=== PATIENT | male | born 1950 | race Caucasian/White ===

== ENCOUNTER 2019-01-28 08:19 | Emergency (ER) | payer OTHER ==
--- OUTSIDE RECORDS SUMMARY | 2019-01-28 08:21 | XMS REPORT | Clinical Summary ---
:1950 Author Organization [facility] Address [address] [place] [address] Care Team Providers Name Role Phone Dale Pulliam MD Primary Care Provider Allergies Active Allergy Reactions Severity Noted Date Comments Meperidine Nausea And Vomiting 08/30/2009 Medications Medication Sig Dispensed Refills Start Date End Date Status allopurinol (ZYLOPRIM) Take 300 mg by 0 02/17/2017 Active 300 MG tablet mouth daily. amLODIPine (NORVASC) Take 10 mg by 0 01/27/2017 Active 10 mg tablet mouth daily. diclofenac (VOLTAREN) Take 75 mg by 0 01/19/2017 Active 75 MG EC tablet mouth as needed. levothyroxine Take 100 mcg by 0 02/17/2017 Active (SYNTHROID, LEVOXYL) mouth daily. 100 mcg tablet lisinopril Take 20 mg by 0 02/03/2017 Active (PRINIVIL,ZESTRIL) 20 mouth daily. mg tablet omeprazole (PriLOSEC) Take 40 mg by 0 02/17/2017 Active 40 MG capsule mouth daily. MULTIVITAMIN ORAL Take 1 tablet by 0 Active mouth daily. diclofenac (VOLTAREN) Apply topically 4 1 Tube 2 06/24/2018 Active 1 % gel (four) times a day. Apply 2 gms to affected area 4 times a day DULoxetine (CYMBALTA) 0 09/30/2018 Active 30 MG capsule ALPRAZolam (XANAX) 0.5 Take 0.5 mg by 0 Active MG tablet mouth nightly as needed for anxiety. Active Problems Problem Noted Date Hypertension Hypothyroidism Encounters Date Type Specialty Care Team Description 01/06/2019 Office Visit Orthopedic Surgery Shmuel Langford Primary osteoarthritis of left hand (Primary Dx); MD Slim Primary osteoarthritis of right hand 06/24/2018 Office Visit Orthopedic Surgery Shmuel Langford Primary osteoarthritis MD Slim of left hand (Primary Dx) after 01/27/2018 Immunizations Name Dates Previously Given Next Due Influenza, Unspecified 05/11/2016 Family History Medical History Relation Name Comments Cancer Father Hypertension Mother Relation Name Status Comments Father Mother Social History Tobacco Use Types Packs/Day Years Used Date Never Smoker Smokeless Tobacco: Former User Quit: 1989 Alcohol Use Drinks/Week oz/Week Comments No Sex Assigned at Date Recorded Not on file Job Start Date Occupation Industry Not on file Not on file Not on file Travel History Travel Start Travel End No recent travel history available. Last Filed Vital Signs Vital Sign Reading Time Taken Blood Pressure - - Pulse - - Temperature - - Respiratory Rate - - Oxygen Saturation - - Inhaled Oxygen Concentration - - Weight 65.8 kg (145 lb) 01/06/2019 8:44 AM CDT Height 167.6 cm (5' 6") 01/06/2019 8:44 AM CDT Body Mass Index 23.4 01/06/2019 8:44 AM CDT Plan of Treatment Health Maintenance Due Date Last Done Comments COLONOSCOPY SCREENING 2000 SHINGLES VACCINES (#1) 2000 65+ PNEUMOCOCCAL VACCINE (1 of 2 - PCV13) 2015 INFLUENZA VACCINE 03/11/2019 05/11/2016 Implants Implanted Type Area Die Repair Machinist Device Shelf Model / Identifier Expiration Serial / Date Lot Screw Bone Comp Headls Mini Ti 26mm Acutrak - [id number] Orthopedic [facility]ED [facility] 02/15/2023 LLOYD 260 S / Implanted: 07/17/2017 (Quantity not on file) Trauma Implants / [id number] Procedures Procedure Name Priority Date/Time Associated Diagnosis Comments LA ARTHROCENTESIS Routine 01/06/2019 8:30 Primary Results for this ASPIR&/INJ SMALL AM CDT osteoarthritis of procedure are in JT/BURSA W/O US left hand the results section. LA ARTHROCENTESIS Routine 01/06/2019 8:30 Primary Results for this ASPIR&/INJ SMALL AM CDT osteoarthritis of procedure are in JT/BURSA W/O US left hand the results Primary section. osteoarthritis of right hand LA ARTHROCENTESIS Routine 06/24/2018 8:30 Primary Results for this ASPIR&/INJ SMALL AM FIELD SERVICE CONSULTANT osteoarthritis of procedure are in JT/BURSA W/O US left hand the results section. LA ARTHROCENTESIS Routine 06/24/2018 8:30 Primary Results for this ASPIR&/INJ SMALL AM FIELD SERVICE CONSULTANT osteoarthritis of procedure are in JT/BURSA W/O US left hand the results section. XR HAND 3+ VW LEFT Routine 06/24/2018 8:27 Left hand pain Results for this AM FIELD SERVICE CONSULTANT procedure are in the results section. after 01/27/2018 Results Small Joint Arthrocentesis: long finger, L long PIP (01/06/2019 8:30 AM CDT) Narrative Performed At Shmuel Langford MD 01/06/2019 11:57 AM Small Joint Arthrocentesis: long finger, L long PIP Consent given by: patient Site marked: site marked Timeout: Immediately prior to procedure a time out was called to verify the correct patient, procedure, equipment, field support representative and site/side marked as required Supporting Documentation Indications: pain Procedure Details Preparation: Patient was prepped and draped in the usual sterile fashion Location: long finger - L long PIP Left side: Needle size: 25 G Left long finger medications administered: 20 mg methylPREDNISolone acetate 40 mg/mL; 0.5 mL lidocaine 10 mg/mL (1 %) Patient tolerance: patient tolerated the procedure well with no immediate complications Small Joint Arthrocentesis: index finger, Bilateral index PIP (01/06/2019 8:30 AM CDT) Narrative Performed At Shmuel Langford MD 01/08/20197:13 AM Small Joint Arthrocentesis: index finger, Bilateral index PIP Consent given by: patient Site marked: site marked Timeout: Immediately prior to procedure a time out was called to verify the correct patient, procedure, equipment, field support representative and site/side marked as required Supporting Documentation Indications: pain Procedure Details Preparation: Patient was prepped and draped in the usual sterile fashion Location: index finger - Bilateral index PIP Right side: Needle size: 25 G Right index finger medications administered: 20 mg methylPREDNISolone acetate 40 mg/mL; 0.5 mL lidocaine 10 mg/mL (1 %) Patient tolerance: patient tolerated the procedure well with no immediate complications Left side: Needle size: 25 G Left index finger medications administered: 0.5 mL lidocaine 10 mg/mL (1 %); 20 mg methylPREDNISolone acetate 40 mg/mL Patient tolerance: patient tolerated the procedure well with no immediate complications Small Joint Arthrocentesis: long finger, L long PIP (06/24/2018 8:30 AM FIELD SERVICE CONSULTANT) Narrative Performed At Shmuel Langford MD 06/24/2018 12:13 PM Small Joint Arthrocentesis: long finger, L long PIP Consent given by: patient Site marked: site marked Timeout: Immediately prior to procedure a time out was called to verify the correct patient, procedure, equipment, field support representative and site/side marked as required Supporting Documentation Indications: pain Procedure Details Preparation: Patient was prepped and draped in the usual sterile fashion Location: long finger - L long PIP Left side: Needle size: 25 G Left long finger medications administered: 20 mg methylPREDNISolone acetate 40 mg/mL; 0.5 mL lidocaine 10 mg/mL (1 %) Patient tolerance: patient tolerated the procedure well with no immediate complications Small Joint Arthrocentesis: index finger, L index PIP (06/24/2018 8:30 AM FIELD SERVICE CONSULTANT) Narrative Performed At Shmuel Langford MD 06/24/2018 12:13 PM Small Joint Arthrocentesis: index finger, L index PIP Consent given by: patient Site marked: site marked Timeout: Immediately prior to procedure a time out was called to verify the correct patient, procedure, equipment, field support representative and site/side marked as required Supporting Documentation Indications: pain Procedure Details Preparation: Patient was prepped and draped in the usual sterile fashion Location: index finger - L index PIP Left side: Needle size: 25 G Left index finger medications administered: 20 mg methylPREDNISolone acetate 40 mg/mL; 0.5 mL lidocaine 10 mg/mL (1 %) Patient tolerance: patient tolerated the procedure well with no immediate complications XR Hand 3+ Vw Left (06/24/2018 8:27 AM FIELD SERVICE CONSULTANT) Specimen Narrative Performed At X-rays 3 views of the left hand showed a healing wrist fusion.The dorsal HM RADIANT plate is intact.Arthritis is noted at the finger interphalangeal joints. Performing Organization Address City/State/Zipcode Phone Number [facility] [address] [place] [address] after 01/27/2018 Insurance Payer Benefit Plan / Subscriber ID Effective Dates Phone Address Type Group MEDICARE MEDICARE PART A xxxxxxxxxxx 2013-[place]anna [place], [place] Medicare AND B t [employer] xxxxxxxxxx 2018-[place] [employer] [place] Advance Directives Patient has advance care planning documents on file. For more information, please contact:Anand Kohury[address] [place] [address]
--- NOTE | 2019-01-28 09:06 | ER ---
Nurse's Notes [facility] Name: Nathan Hurley Age: 68 yrs Sex: Male : 1950 Arrival Date: 01/28/2019 Time: 08:20 Bed 6 Private MD: Derian Pulliam C Diagnosis: Hematoma of distal left anterior tibia Presentation: 01/28 08:34 Presenting complaint: Left lower leg swelling after dropping wooden beam on leg 1 week hb ago. Transition of care: patient was not received from another setting of care. Onset of symptoms was January 28, 2019. Risk Assessment: Do you want to hurt yourself or someone else? Patient reports no desire to harm self or others. Initial Sepsis Screen: Does the patient meet any 2 criteria? No. Patient's initial sepsis screen is negative. Does the patient have a suspected source of infection? No. Patient's initial sepsis screen is negative. Care prior to arrival: None. 08:34 Method Of Arrival: Ambulatory hb 08:34 Acuity: ANTONIO 4 hb Triage Assessment: 08:35 General: Appears in no apparent distress. comfortable, Behavior is calm, cooperative, bp appropriate for age. Pain: Complains of pain in left calf. EENT: No deficits noted. Neuro: Level of Consciousness is awake, alert, obeys commands, Oriented to person, place, time, situation, Appropriate for age. Cardiovascular: No deficits noted. Respiratory: Airway is patent Respiratory effort is even, unlabored. GI: No signs and/or symptoms were reported involving the gastrointestinal system. : No signs and/or symptoms were reported regarding the genitourinary system. Derm: No deficits noted. Musculoskeletal: Circulation, motion, and sensation intact. Range of motion: intact in all extremities. Injury Description: Bruise sustained to left barroso. Historical: - Allergies: 08:36 No Known Allergies; hb - Home Meds: 08:36 diclofenac oral oral [Active]; hb - PMHx: 08:36 Arthritis; hb - PSHx: 08:36 Servadno Hip Replacement; Servando Knee Replacement; Servando Wrist; Hand - Right; hb - Immunization history:: Adult Immunizations up to date. - Social history:: Smoking status: Patient/guardian denies using tobacco. - Ebola Screening: : No symptoms or risks identified at this time. Screenin:36 Abuse screen: Denies threats or abuse. Denies injuries from another. Nutritional hb screening: No deficits noted. Tuberculosis screening: No symptoms or risk factors identified. Fall Risk None identified. Assessment: 08:35 General: SEE TRIAGE NOTE. bp 09:25 Reassessment: PT D/C HOME AMBULATORY, DX WITH LEFT DISTAL TIBIA HEMATOMA. bp Vital Signs: 08:36 BP 139 / 78; Pulse 64; Resp 16; Temp 97.8; Pulse Ox 100% ; Weight 74.84 kg; Height 5 hb ft. 9 in. (175.26 cm); Pain 0/10; 09:25 BP 141 / 75; Pulse 67; Resp 16; Temp 98; Pulse Ox 100% ; bp 08:36 Body Mass Index 24.37 (74.84 kg, 175.26 cm) hb ED Course: 08:20 Patient arrived in ED. as 08:20 Derian Pulliam MD is Private Physician. as 08:21 Arturo Waddell MD is Attending Physician. kdr 08:34 Triage completed. hb 08:35 Patient has correct armband on for positive identification. Bed in low position. Call bp light in reach. Side rails up X2. 08:36 Arm band placed on. hb 08:48 Faisal Teixeira, RN is Primary Nurse. bp 09:00 Derian Pulliam MD is Referral Physician. kdr 09:12 Vinicio wrap to left lower extremity. em1 09:30 No provider procedures requiring assistance completed. Patient did not have IV access bp during this emergency room visit. Administered Medications: 09:10 Drug: KeFLEX 500 mg Route: PO; bp 09:23 Follow up: Response: No adverse reaction bp Outcome: 09:05 Discharge ordered by . kdr 09:31 Discharged to home ambulatory. bp 09:31 Condition: stable 09:31 Discharge instructions given to patient, Instructed on discharge instructions, follow up and referral plans. medication usage, Demonstrated understanding of instructions, follow-up care, medications, wound care. 09:32 Patient left the ED. bp Signatures: Arturo Waddell MD MD kdr Susan Clemente Eric em1 Rosana Adkins, RN RN hb Faisal Teixeira, RN RN bp
--- NOTE | 2019-01-28 09:06 | EDPHYS ---
Physician Documentation [facility] Name: Nathan Hurley Age: 68 yrs Sex: Male : 1950 Arrival Date: 01/28/2019 Time: 08:20 Bed 6 Private MD: Derian Pulliam C ED Physician Arturo Waddell HPI: 01/28 08:53 This 68 yrs old Male presents to ER via Ambulatory with complaints of Leg kdr Swelling, Leg Pain. 08:53 The patient presents with an abrasion, pain, that is acute, swelling. The complaints kdr affect the anterior aspect of left ankle. Context: The problem was sustained at home, resulted from a crush injury, from a heavy object, the patient can fully bear weight, the patient is able to ambulate, Problem is a result from a previous injury: No. Onset: The symptoms/episode began/occurred gradually, 1 week(s) ago. Modifying factors: The symptoms are alleviated by nothing. the symptoms are aggravated by movement. Associated signs and symptoms: The patient has no apparent associated signs or symptoms. Treatment prior to arrival includes: no previous treatment. Severity of symptoms: At their worst the symptoms were very mild, in the emergency department the symptoms are unchanged. The patient has not experienced similar symptoms in the past. The patient has not recently seen a physician. Historical: - Allergies: 08:36 No Known Allergies; hb - Home Meds: 08:36 diclofenac oral oral [Active]; hb - PMHx: 08:36 Arthritis; hb - PSHx: 08:36 Servando Hip Replacement; Servando Knee Replacement; Servando Wrist; Hand - Right; hb - Immunization history:: Adult Immunizations up to date. - Social history:: Smoking status: Patient/guardian denies using tobacco. - Ebola Screening: : No symptoms or risks identified at this time. ROS: 08:53 Constitutional: Negative for fever, chills, and weight loss, Eyes: Negative for injury, kdr pain, redness, and discharge, ENT: Negative for injury, pain, and discharge, Neck: Negative for injury, pain, and swelling, Cardiovascular: Negative for chest pain, palpitations, and edema, Respiratory: Negative for shortness of breath, cough, wheezing, and pleuritic chest pain, Abdomen/GI: Negative for abdominal pain, nausea, vomiting, diarrhea, and constipation, Back: Negative for injury and pain, : Negative for injury, bleeding, discharge, and swelling, Skin: Negative for injury, rash, and discoloration, Neuro: Negative for headache, weakness, numbness, tingling, and seizure activity. Psych: Negative for depression, anxiety, suicide ideation, homicidal ideation, and hallucinations, Allergy/Immunology: Negative for hives, rash, and allergies, Endocrine: Negative for neck swelling, polydipsia, polyuria, polyphagia, and marked weight changes, Hematologic/Lymphatic: Negative for swollen nodes, abnormal bleeding, and unusual bruising. 08:53 MS/extremity: Positive for injury or acute deformity, ecchymosis, erythema, swelling, of the left barroso and anterior aspect of left ankle, Negative for decreased range of motion, tenderness, warmth. Exam: 08:53 Constitutional: This is a well developed, well nourished patient who is awake, alert, kdr and in no acute distress. 08:53 Musculoskeletal/extremity: Extremities: grossly normal except: abrasion, pain, abrasion, ROM: no acute changes, intact in all extremities, Circulation is intact in all extremities. Sensation intact. Compartment Syndrome exam of affected extremity: is normal. no tingling, no sensation deficit, no palor, no weak pulses, the left foot Vital Signs: 08:36 BP 139 / 78; Pulse 64; Resp 16; Temp 97.8; Pulse Ox 100% ; Weight 74.84 kg; Height 5 hb ft. 9 in. (175.26 cm); Pain 0/10; 09:25 BP 141 / 75; Pulse 67; Resp 16; Temp 98; Pulse Ox 100% ; bp 08:36 Body Mass Index 24.37 (74.84 kg, 175.26 cm) hb MDM: 08:53 Data reviewed: vital signs, nurses notes. Counseling: I had a detailed discussion with kdr the patient and/or guardian regarding: the historical points, exam findings, and any diagnostic results supporting the discharge/admit diagnosis, the need for outpatient follow up. ED course: The patient was stable and non-toxic in the ED. He was happy with the care provided and the plan for discharge and follow-up. 09:05 Patient medically screened. kdr 01/28 08:52 Order name: Vinicio Wrap: Left lower extremity; Complete Time: 09:12 kdr Administered Medications: 09:10 Drug: KeFLEX 500 mg Route: PO; bp 09:23 Follow up: Response: No adverse reaction bp Disposition: 01/28/19 09:05 Discharged to Home. Impression: Hematoma of distal left anterior tibia. - Condition is Stable. - Discharge Instructions: Hematoma, [id number]. - Prescriptions for Cephalexin 500 mg Oral Capsule - take 1 capsule by ORAL route every 6 hours for 7 days; 28 capsule. - Medication Reconciliation Form, Thank You Letter, Antibiotic Education form. - Follow up: Derian Pulliam MD; When: 2 - 3 days; Reason: If symptoms return, Further diagnostic work-up, Recheck today's complaints, Continuance of care, Re-evaluation by your physician. - Problem is an ongoing problem. - Symptoms are unchanged. Signatures: Arturo Waddell MD MD kdr Rosana Adkins, RITESH RN Faisal Teixeira, RN RN bp Corrections: (The following items were deleted from the chart) 09:32 09:05 01/28/2019 09:05 Discharged to Home. Impression: Hematoma of distal left anterior bp tibia. Condition is Stable. Forms are Medication Reconciliation Form, Thank You Letter, Antibiotic Education, Prescription Opioid Use. Follow up: Derian Pulliam; When: 2 - 3 days; Reason: If symptoms return, Further diagnostic work-up, Recheck today's complaints, Continuance of care, Re-evaluation by your physician. Problem is an ongoing problem. Symptoms are unchanged. kdr
[2019-01-28] MEDS ORDERED: CEPHALEXIN 250 MG CAP ONE (09:26)
[2019-01-28 09:54] VITALS: O2SAT 100
[2019-01-28 09:55] VITALS: BP 141/75; TEMP 98
== END 2019-01-28 09:32 | disposition home or self-care (01) ==
LOC: ER 08:19
DX: S80.12XA Contusion of left lower leg, initial encounter (principal); X58.XXXA Exposure to other specified factors, initial encounter; Y93.9 Activity, unspecified; Y92.009 Unspecified place in unspecified non-institutional (private) residence as the place of occurrence of the external cause; Z96.643 Presence of artificial hip joint, bilateral; Z96.653 Presence of artificial knee joint, bilateral
CPT/HCPCS: 99283

== ENCOUNTER 2019-05-01 11:17 | Emergency (ER) | payer OTHER ==
--- OUTSIDE RECORDS SUMMARY | 2019-05-01 11:19 | XMS REPORT | Clinical Summary ---
:1950 Author Organization [facility] Address [address] [place] [address] Care Team Providers Name Role Phone Dale [...] Team Description 01/06/2019 Office Visit Orthopedic Surgery Shumel Langford Primary osteoarthritis of left hand (Primary Dx); MD Slim Primary osteoarthritis of right hand 06/24/2018 Office Visit Orthopedic Surgery Shmuel Langford Primary osteoarthritis MD Slim of left hand (Primary Dx) after 04/30/2018 Immunizations Name Administration Dates Next Due Influenza, Unspecified 05/11/2016 Family History [...] Vital Signs Vital Sign Reading Time Taken Comments Blood Pressure - - Pulse - - [...] VACCINE 03/11/2019 05/11/2016 Implants Implanted Type Area Molder Bench Device Shelf Model / Identifier Expiration Serial / Date Lot Screw Bone Comp Headls Mini Ti 26mm Acutrak - [id number] Orthopedic [facility]UMED [facility] 02/15/2023 LLOYD 260 S / Implanted: 07/17/2017 at [facility] (Quantity not on file) Trauma Implants / [id number] Procedures Procedure Name Priority Date/Time Associated Diagnosis Comments DE ARTHROCENTESIS Routine 01/06/2019 8:30 Primary Results for this ASPIR&/INJ SMALL AM CDT osteoarthritis of procedure are in JT/BURSA W/O US left hand the results section. DE ARTHROCENTESIS Routine 01/06/2019 8:30 Primary Results for this ASPIR&/INJ SMALL AM CDT osteoarthritis of procedure are in JT/BURSA W/O US left hand the results Primary section. osteoarthritis of right hand DE ARTHROCENTESIS Routine 06/24/2018 8:30 Primary Results for this ASPIR&/INJ SMALL AM CAR DRYER osteoarthritis of procedure are in JT/BURSA W/O US left hand the results section. DE ARTHROCENTESIS Routine 06/24/2018 8:30 Primary Results for this ASPIR&/INJ SMALL AM CAR DRYER osteoarthritis of procedure are in JT/BURSA W/O US left hand the results section. XR HAND 3+ VW LEFT Routine 06/24/2018 8:27 Left hand pain Results for this AM CAR DRYER procedure are in the results section. after 04/30/2018 Results Small Joint Arthrocentesis: long finger, L long PIP (01/06/2019 8:30 AM CDT) Narrative Performed At Shmuel Langford MD 01/06/2019 11:57 AM Small Joint Arthrocentesis: long finger, L long PIP Consent given by: patient Site marked: site marked Timeout: Immediately prior to procedure a time out was called to verify the correct patient, procedure, equipment, residential support specialist and site/side marked as required Supporting Documentation [...] to verify the correct patient, procedure, equipment, residential support specialist and site/side marked as required Supporting Documentation [...] finger, L long PIP (06/24/2018 8:30 AM CAR DRYER) Narrative Performed At Shmuel Langford MD 06/24/2018 12:13 PM Small Joint Arthrocentesis: long finger, L long PIP Consent given by: patient Site marked: site marked Timeout: Immediately prior to procedure a time out was called to verify the correct patient, procedure, equipment, residential support specialist and site/side marked as required Supporting Documentation [...] finger, L index PIP (06/24/2018 8:30 AM CAR DRYER) Narrative Performed At Shmuel Langford MD 06/24/2018 12:13 PM Small Joint Arthrocentesis: index finger, L index PIP Consent given by: patient Site marked: site marked Timeout: Immediately prior to procedure a time out was called to verify the correct patient, procedure, equipment, residential support specialist and site/side marked as required Supporting Documentation [...] Hand 3+ Vw Left (06/24/2018 8:27 AM CAR DRYER) Specimen Narrative Performed At X-rays 3 views of the left hand showed a healing wrist fusion.The dorsal HM [facility]IANT plate is intact.Arthritis is noted at the finger interphalangeal joints. Performing Organization Address City/State/Zipcode Phone Number [facility] [address] [place] [address] after 04/30/2018 Insurance Payer Benefit Plan / Subscriber ID Effective Dates Phone Address Type Group MEDICARE MEDICARE PART A xxxxxxxxxxx 2013-[place], [place] Medicare AND B t [employer] xxxxxxxxxx 2018-[place] [employer] [place] Advance Directives For more information, please contact: [phone] Type Date Recorded Patient Intensive Care Nurse Explanation Advance Directives, Living Will 02/27/2017 8:50 AM and Medical Power of Calf Skinner
--- NOTE | 2019-05-01 12:22 | RAD REPORT ---
EXAM DESCRIPTION: RAD - Chest Pa And Lat (2 Views) - 05/01/2019 11:55 am CLINICAL HISTORY: PAIN Chest pain. COMPARISON: Chest Pa And Lat (2 Views) dated 09/24/2018; CHEST PA AND LAT 2 VIEW dated 04/11/2015; CHES T SINGLE VIEW dated 09/24/2014; CHEST SINGLE VIEW dated 09/07/2014 FINDINGS: The lungs are clear. The heart is normal in size. No displaced fractures. IMPRESSION: No acute or concerning finding suspected.
--- NOTE | 2019-05-01 12:30 | EDPHYS ---
Physician Documentation [facility] Name: Nathan Hurley Age: 68 yrs Sex: Male : 1950 Arrival Date: 05/01/2019 Time: 11:19 Bed 11 Private MD: ED Physician Maira Escalona HPI: 05/01 12:01 This 68 yrs old Male presents to ER via Ambulatory with complaints of Rib kb Pain. 12:01 The patient or guardian reports chest pain that is located primarily in the anterior kb chest wall. Onset: The symptoms/episode began/occurred 2 week(s) ago. The pain does not radiate. Associated signs and symptoms: The patient has no apparent associated signs or symptoms. The chest pain is described as aching. Duration: The patient or guardian reports a single episode. Modifying factors: the symptoms are aggravated by movement, palpation of area. Severity of pain: At its worst the pain was mild moderate in the emergency department the pain is unchanged. The patient has not experienced similar symptoms in the past. The patient has not recently seen a physician. Pt reports he fell off of a ladder a couple of weeks ago and hurt his right lower ribs. States he was framing a house yesterday, doing a lot of bending, and woke up with increased pain to area this morning. "Wanted to see if my ribs were cracked or not". Historical: - Allergies: 11:24 Demerol; la1 - PMHx: 11:24 Arthritis; Hypertension; la1 - Immunization history:: Adult Immunizations up to date. - Social history:: Smoking status: Patient/guardian denies using tobacco. - Ebola Screening: : No symptoms or risks identified at this time. ROS: 12:00 Constitutional: Negative for fever, chills, and weight loss, Respiratory: Negative for kb shortness of breath, cough, wheezing, and pleuritic chest pain, Abdomen/GI: Negative for abdominal pain, nausea, vomiting, diarrhea, and constipation, Back: Negative for injury and pain, MS/Extremity: Negative for injury and deformity, Skin: Negative for injury, rash, and discoloration, Neuro: Negative for headache, weakness, numbness, tingling, and seizure. 12:00 Cardiovascular: Positive for chest pain, with movement, Negative for edema, orthopnea, palpitations, paroxysmal nocturnal dyspnea. Exam: 11:47 Constitutional: This is a well developed, well nourished patient who is awake, alert, kb and in no acute distress. Head/Face: Normocephalic, atraumatic. Cardiovascular: Regular rate and rhythm with a normal S1 and S2. No gallops, murmurs, or rubs. Normal PMI, no JVD. No pulse deficits. Respiratory: Lungs have equal breath sounds bilaterally, clear to auscultation and percussion. No rales, rhonchi or wheezes noted. No increased work of breathing, no retractions or nasal flaring. Abdomen/GI: Soft, non-tender, with normal bowel sounds. No distension or tympany. No guarding or rebound. No evidence of tenderness throughout. Back: No spinal tenderness. No costovertebral tenderness. Full range of motion. Skin: Warm, dry with normal turgor. Normal color with no rashes, no lesions, and no evidence of cellulitis. MS/ Extremity: Pulses equal, no cyanosis. Neurovascular intact. Full, normal range of motion. Neuro: Awake and alert, GCS 15, oriented to person, place, time, and situation. Cranial nerves II-XII grossly intact. Motor strength 5/5 in all extremities. Sensory grossly intact. Cerebellar exam normal. Normal gait. 11:47 Chest/axilla: Inspection: normal, Palpation: tenderness, that is moderate, of the right lower anterior chest. Vital Signs: 11:24 BP 122 / 78; Pulse 73; Resp 16; Temp 97.4; Pulse Ox 100% on R/A; Weight 68.04 kg; la1 Height 5 ft. 6 in. (167.64 cm); 11:24 Body Mass Index 24.21 (68.04 kg, 167.64 cm) la1 MDM: 11:32 Patient medically screened. kb 11:47 Data reviewed: vital signs, nurses notes. Data interpreted: Pulse oximetry: on room air kb is 100 %. Interpretation: normal. 12:28 Counseling: I had a detailed discussion with the patient and/or guardian regarding: the kb historical points, exam findings, and any diagnostic results supporting the discharge/admit diagnosis, radiology results, the need for outpatient follow up, a family practitioner, to return to the emergency department if symptoms worsen or persist or if there are any questions or concerns that arise at home. 05/01 11:32 Order name: Chest Pa And Lat (2 Views) XRAY; Complete Time: 12:28 kb Administered Medications: No medications were administered Disposition: 05/02 07:10 Co-signature as Attending Physician, Maira Escalona MD. ma2 Disposition: 05/01/19 12:29 Discharged to Home. Impression: Right lower rib pain. - Condition is Stable. - Discharge Instructions: Muscle Pain, Adult. - Medication Reconciliation Form, Thank You Letter, Antibiotic Education, Prescription Opioid Use form. - Follow up: Emergency Department; When: As needed; Reason: Worsening of condition. Follow up: Private Physician; When: 2 - 3 days; Reason: Recheck today's complaints, Continuance of care, Re-evaluation by your physician. Signatures: Dispatcher [employer] EDNataliia Leigh, SYMONE-C [id number] ARMOR CREWMAN-Tess Ramirez RN RN aa5 Sandoval Olivares RN RN la1 Maira Escalona MD MD ms2 Corrections: (The following items were deleted from the chart) 05/01 12:55 12:29 05/01/2019 12:29 Discharged to Home. Impression: Right lower rib pain. Condition aa5 is Stable. Forms are Medication Reconciliation Form, Thank You Letter, Antibiotic Education, Prescription Opioid Use. Follow up: Emergency Department; When: As needed; Reason: Worsening of condition. Follow up: Private Physician; When: 2 - 3 days; Reason: Recheck today's complaints, Continuance of care, Re-evaluation by your physician. kb
--- NOTE | 2019-05-01 12:30 | ER ---
Nurse's Notes [facility] Name: Nathan Hurley Age: 68 yrs Sex: Male : 1950 Arrival Date: 05/01/2019 Time: 11:19 Bed 11 Private MD: Diagnosis: Right lower rib pain Presentation: 05/01 11:24 Presenting complaint: Patient states: I fell about 5 feet off of a ladder a couple la1 weeks ago and I wanted to see if I cracked a rib or something on the right side. Transition of care: patient was not received from another setting of care. Onset of symptoms was May 01, 2019. Risk Assessment: Do you want to hurt yourself or someone else? Patient reports no desire to harm self or others. Initial Sepsis Screen: Does the patient meet any 2 criteria? No. Patient's initial sepsis screen is negative. Does the patient have a suspected source of infection? No. Patient's initial sepsis screen is negative. Care prior to arrival: None. 11:24 Method Of Arrival: Ambulatory la1 11:24 Acuity: ANTONIO 4 la1 Historical: - Allergies: 11:24 Demerol; la1 - PMHx: 11:24 Arthritis; Hypertension; la1 - Immunization history:: Adult Immunizations up to date. - Social history:: Smoking status: Patient/guardian denies using tobacco. - Ebola Screening: : No symptoms or risks identified at this time. Screenin:27 Abuse screen: Denies threats or abuse. Nutritional screening: No deficits noted. la1 Tuberculosis screening: No symptoms or risk factors identified. Fall Risk None identified. Assessment: 11:27 General: Appears in no apparent distress. Behavior is calm, cooperative. Pain: la1 Complains of pain in right lateral anterior chest. Neuro: Level of Consciousness is awake, alert, obeys commands, Oriented to person, place, time, situation. Cardiovascular: Capillary refill < 3 seconds Patient's skin is warm and dry. Respiratory: Airway is patent Respiratory effort is even, unlabored, Respiratory pattern is regular, symmetrical, Breath sounds are clear bilaterally. GI: No signs and/or symptoms were reported involving the gastrointestinal system. : No signs and/or symptoms were reported regarding the genitourinary system. Vital Signs: 11:24 BP 122 / 78; Pulse 73; Resp 16; Temp 97.4; Pulse Ox 100% on R/A; Weight 68.04 kg; la1 Height 5 ft. 6 in. (167.64 cm); 11:24 Body Mass Index 24.21 (68.04 kg, 167.64 cm) la1 ED Course: 11:19 Patient arrived in ED. as 11:24 Arm band placed on left wrist. la1 11:25 Triage completed. la1 11:27 Sandoval Olivares, RN is Primary Nurse. la1 11:27 Patient has correct armband on for positive identification. la1 11:27 No provider procedures requiring assistance completed. Patient did not have IV access la1 during this emergency room visit. 11:31 Natal[facility]ons[facility]C [facility] kb 11:32 Maira Escalona MD is Attending Physician. kb 11:54 Chest Pa And Lat (2 Views) XRAY In Process Unspecified. EDMS Administered Medications: No medications were administered Outcome: 12:29 Discharge ordered by MD. kb 12:54 Discharged to home ambulatory. aa5 12:54 Condition: stable 12:54 Discharge instructions given to patient, Instructed on discharge instructions, follow up and referral plans. Demonstrated understanding of instructions, follow-up care. 12:55 Patient left the ED. aa5 Signatures: Dispatcher [employer] EDMS Nataliia Gonsalez FNP-C FNP-Ckb Martinez, Amelia as Calderon, Audri, RN RN aa5 Sandoval Olivares, RN RN la1
[2019-05-01 13:12] VITALS: BP 122/78; TEMP 97.4; O2SAT 100
== END 2019-05-01 12:55 | disposition home or self-care (01) ==
LOC: ER 11:17
DX: R07.81 Pleurodynia (principal); Z88.6 Allergy status to analgesic agent
CPT/HCPCS: 71046; 99283

== ENCOUNTER 2019-06-24 10:22 | Emergency (ER) | payer OTHER ==
--- NOTE | 2019-06-24 11:38 | EDPHYS ---
Physician Documentation [facility] Name: Nathan Hurley Age: 69 yrs Sex: Male : 1950 Arrival Date: 06/24/2019 Time: 10:24 Bed 5 Private MD: Dale Pulliam ED Physician Arturo Waddell HPI: 06/24 11:01 This 69 yrs old Male presents to ER via Ambulatory with complaints of Left pm1 Calf Pain. 11:01 The patient presents with pain. The complaints affect the left calf. Context: The pm1 problem was sustained at home, resulted from an unknown cause, the patient can fully bear weight, the patient is able to ambulate. Onset: The symptoms/episode began/occurred Patient with slip on a deck while fishing and injured his left knee 5 days. Did not hit his left knee on the ground. His left knee pain has resolved and he started having left calf pain 3 days ago. Historical: - Allergies: 10:50 Demerol; ss - PMHx: 10:50 Arthritis; Hypertension; ss - PSHx: 10:50 knee replacement; bilateral hip replacement; bilateral wrist fusion; ss - Immunization history:: Adult Immunizations up to date. - Social history:: Smoking status: Patient uses tobacco products, chewing tobacco. - Ebola Screening: : Patient denies exposure to infectious person Patient denies travel to an Ebola-affected area in the 21 days before illness onset. ROS: 11:05 Constitutional: Negative for fever, chills, and weight loss, Neck: Negative for injury, pm1 pain, and swelling, Cardiovascular: Negative for chest pain, palpitations, and edema, Respiratory: Negative for shortness of breath, cough, wheezing, and pleuritic chest pain, Abdomen/GI: Negative for abdominal pain, nausea, vomiting, diarrhea, and constipation, Back: Negative for injury and pain. 11:05 Skin: Negative for injury, rash, and discoloration, Neuro: Negative for headache, weakness, numbness, tingling, and seizure. 11:05 MS/extremity: Positive for pain, of the left calf, Negative for decreased range of motion, deformity. Exam: 11:05 Constitutional: This is a well developed, well nourished patient who is awake, alert, pm1 and in no acute distress. Chest/axilla: Normal chest wall appearance and motion. Nontender with no deformity. No lesions are appreciated. Cardiovascular: Regular rate and rhythm with a normal S1 and S2. No gallops, murmurs, or rubs. Normal PMI, no JVD. No pulse deficits. Respiratory: Lungs have equal breath sounds bilaterally, clear to auscultation and percussion. No rales, rhonchi or wheezes noted. No increased work of breathing, no retractions or nasal flaring. Abdomen/GI: Soft, non-tender, with normal bowel sounds. No distension or tympany. No guarding or rebound. No evidence of tenderness throughout. Back: No spinal tenderness. No costovertebral tenderness. Full range of motion. Skin: Warm, dry with normal turgor. Normal color with no rashes, no lesions, and no evidence of cellulitis. 11:05 Musculoskeletal/extremity: Extremities: grossly normal except: noted in the left calf: tenderness, There is no evidence of tenderness, noted in the left knee: no evidence of decreased ROM, deformity, pain, swelling, tenderness. 11:05 Neuro: Orientation: is normal, Motor: is normal, moves all fours. Vital Signs: 10:50 BP 135 / 82; Pulse 75; Resp 16; Temp 98.6(TE); Pulse Ox 98% on R/A; Weight 65.77 kg; ss Height 5 ft. 6 in. (167.64 cm); Pain 4/10; 10:50 Body Mass Index 23.40 (65.77 kg, 167.64 cm) ss MDM: 10:53 Patient medically screened. pm1 11:01 ED course: offered pain medication and he refused. pm1 11:35 Data reviewed: vital signs. Data interpreted: Pulse oximetry: on room air is 98 %. pm1 Interpretation: normal. Counseling: I had a detailed discussion with the patient and/or guardian regarding: the historical points, exam findings, and any diagnostic results supporting the discharge/admit diagnosis, radiology results, the need for outpatient follow up, to return to the emergency department if symptoms worsen or persist or if there are any questions or concerns that arise at home. 06/24 11:01 Order name: Extremity Venous [employer] pm1 Administered Medications: No medications were administered Disposition: 06/25 07:04 Co-signature as Attending Physician, Arturo Waddell MD I agree with the assessment and kdr plan of care. Disposition: 06/24/19 11:37 Discharged to Home. Impression: Pain in left lower leg, Strain of unspecified muscle(s) and tendon(s) at lower leg level, left leg. - Condition is Stable. - Discharge Instructions: Musculoskeletal Pain, Heat Therapy. - Medication Reconciliation Form, Thank You Letter, Antibiotic Education, Prescription Opioid Use form. - Follow up: Emergency Department; When: As needed; Reason: Worsening of condition. Follow up: Private Physician; When: 2 - 3 days; Reason: Recheck today's complaints, Continuance of care, Re-evaluation by your physician. - Problem is new. - Symptoms have improved. Signatures: Dispatcher [employer] EDMS Arturo Waddell MD MD [facility] Kaitlyn Marie RN RN ss Jaylen Linares, [employer]ALE STEEL DETAILER pm1 Corrections: (The following items were deleted from the chart) 06/24 11:41 11:37 06/24/2019 11:37 Discharged to Home. Impression: Pain in left lower leg; Strain ss of unspecified muscle(s) and tendon(s) at lower leg level, left leg. Condition is Stable. Forms are Medication Reconciliation Form, Thank You Letter, Antibiotic Education, Prescription Opioid Use. Follow up: Emergency Department; When: As needed; Reason: Worsening of condition. Follow up: Private Physician; When: 2 - 3 days; Reason: Recheck today's complaints, Continuance of care, Re-evaluation by your physician. Problem is new. Symptoms have improved. pm1
--- NOTE | 2019-06-24 11:38 | ER ---
Nurse's Notes [facility] Name: Nathan Hurley Age: 69 yrs Sex: Male : 1950 Arrival Date: 06/24/2019 Time: 10:24 Bed 5 Private MD: Dale Pulliam Diagnosis: Pain in left lower leg;Strain of unspecified muscle(s) and tendon(s) at lower leg level, left leg Presentation: 06/24 10:46 Presenting complaint: Patient states: Slipped and jammed L knee 5 days ago. Patient ss reports that he is concerned because his knee is no longer hurting, but his calf on his affected side is still hurting and has swelling. Transition of care: patient was not received from another setting of care. Onset of symptoms was June 19, 2019. Risk Assessment: Do you want to hurt yourself or someone else? Patient reports no desire to harm self or others. Initial Sepsis Screen: Does the patient meet any 2 criteria? No. Patient's initial sepsis screen is negative. Does the patient have a suspected source of infection? No. Patient's initial sepsis screen is negative. Care prior to arrival: None. 10:46 Method Of Arrival: Ambulatory ss 10:46 Acuity: ANTONIO 3 ss Historical: - Allergies: 10:50 Demerol; ss - PMHx: 10:50 Arthritis; Hypertension; ss - PSHx: 10:50 knee replacement; bilateral hip replacement; bilateral wrist fusion; ss - Immunization history:: Adult Immunizations up to date. - Social history:: Smoking status: Patient uses tobacco products, chewing tobacco. - Ebola Screening: : Patient denies exposure to infectious person Patient denies travel to an Ebola-affected area in the 21 days before illness onset. Screenin:53 Abuse screen: Denies threats or abuse. Denies injuries from another. Nutritional sv screening: No deficits noted. Tuberculosis screening: No symptoms or risk factors identified. Fall Risk None identified. Assessment: 11:00 General: Appears in no apparent distress. uncomfortable, well groomed, well developed, sv Behavior is calm, cooperative, appropriate for age. Pain: Complains of pain in left calf Pain currently is 4 out of 10 on a pain scale. Is intermittent, episodic, Aggravated by increased activity, weight bearing. Neuro: Level of Consciousness is awake, alert, obeys commands, Oriented to person, place, time, situation, Moves all extremities. Full function Gait is steady. Respiratory: Airway is patent Respiratory effort is even, unlabored, Respiratory pattern is regular, symmetrical. Derm: Skin is normal. 11:40 Reassessment: Patient appears in no apparent distress at this time. Patient and/or ss family updated on plan of care and expected duration. Pain level reassessed. Patient is alert, oriented x 3, equal unlabored respirations, skin warm/dry/pink. Vital Signs: 10:50 BP 135 / 82; Pulse 75; Resp 16; Temp 98.6(TE); Pulse Ox 98% on R/A; Weight 65.77 kg; ss Height 5 ft. 6 in. (167.64 cm); Pain 4/10; 10:50 Body Mass Index 23.40 (65.77 kg, 167.64 cm) ED Course: 10:24 Patient arrived in ED. rg4 10:24 Dale Pulliam MD is Private Physician. rg4 10:49 Triage completed. ss 10:50 Arm band placed on left wrist. ss 10:52 Pamela Hines, RITESH is Primary Nurse. sv 10:53 Jaylen Linares NP is PHCP. pm1 10:53 Arturo Waddell MD is Attending Physician. pm1 10:53 Patient has correct armband on for positive identification. Bed in low position. Call sv light in reach. Door closed. Head of bed elevated. 11:08 Awaiting: Ultrasound. sv 11:30 Extremity Venous Uni Ltd US In Process Unspecified. EDMS 11:40 No provider procedures requiring assistance completed. Patient did not have IV access ss during this emergency room visit. Administered Medications: No medications were administered Outcome: 11:37 Discharge ordered by MD. pm1 11:40 Discharged to home ambulatory. ss 11:40 Condition: good 11:40 Discharge instructions given to patient, Instructed on discharge instructions, follow up and referral plans. Demonstrated understanding of instructions, follow-up care. 11:41 Patient left the ED. Signatures: Dispatcher [employer] EDMS Pamela Hines RN RN sv Smirch, Shelby, RN RN Jaylen Linares NP AIR CONDITIONING ENGINEER pm1 Stephany Daniel rg4
--- NOTE | 2019-06-24 11:47 | RAD REPORT ---
EXAM DESCRIPTION: US - Extremity Venous Uni Ltd - 06/24/2019 11:29 am CLINICAL HISTORY: Pain;Swelling Leg swelling and edema. COMPARISON: EXT VENOUS UNI LTD dated 09/11/2014 FINDINGS: Left lower extremity venous system was interrogated with Doppler technique. Normal flow, c ompressibility and augmentation was noted. There is no DVT present. IMPRESSION: No evidence of left lower extremity deep venous thrombosis.
[2019-06-24 14:42] VITALS: BP 135/82; TEMP 98.6; O2SAT 98
== END 2019-06-24 11:41 | disposition home or self-care (01) ==
LOC: ER 10:22
DX: S86.912A Strain of unspecified muscle(s) and tendon(s) at lower leg level, left leg, initial encounter (principal); W01.0XXA Fall on same level from slipping, tripping and stumbling without subsequent striking against object, initial encounter; Y93.89 Activity, other specified; Y92.89 Other specified places as the place of occurrence of the external cause; Z88.5 Allergy status to narcotic agent; Z96.643 Presence of artificial hip joint, bilateral; I10 Essential (primary) hypertension; F17.220 Nicotine dependence, chewing tobacco, uncomplicated
CPT/HCPCS: 93971; 99283

== ENCOUNTER → 2023-10-28 | Emergency (ER) | payer OTHER ==
[~2023-10-28] MED LIST: CEPHALEXIN 250 MG CAP ONE; DOXYCYCLINE 100 MG CAP PO ONE
--- NOTE | 2023-10-28 22:28 | ER ---
Nurse's Notes [facility] Name: Nathan Hurley Age: 73 yrs Sex: Male : 1950 Arrival Date: 10/28/2023 Time: 19:25 Bed 13 Private MD: Diagnosis: Local infection of the skin and subcutaneous tissue, unspecified Presentation: 10/27 19:49 Chief complaint: Patient states: he was bitten by a dog on his left lower leg approx 6 ap3 weeks ago. patient completed antibiotics. patient reports the wound is not healing, and now has a foul smell. Coronavirus screen: At this time, the client does not indicate any symptoms associated with coronavirus-19. Ebola Screen: No symptoms or risks identified at this time. Initial Sepsis Screen: Does the patient meet any 2 criteria? No. Patient's initial sepsis screen is negative. Does the patient have a suspected source of infection? No. Patient's initial sepsis screen is negative. Risk Assessment: Do you want to hurt yourself or someone else? Patient reports no desire to harm self or others. Onset of symptoms is unknown. 19:49 Method Of Arrival: Ambulatory ap3 19:49 Acuity: ANTONIO 3 ap3 Triage Assessment: 19:51 Bite description: bite sustained to left leg by a dog, animal information: was ap3 sustained 6 weeks. General: Appears in no apparent distress. Behavior is calm, cooperative, appropriate for age. Pain: Complains of pain in left barroso. Neuro: Level of Consciousness is awake, alert, obeys commands, Oriented to person, place, time, situation, Appropriate for age. Cardiovascular: Patient's skin is warm and dry. Respiratory: Airway is patent Respiratory effort is even, unlabored, Respiratory pattern is regular, symmetrical. Derm: Wound noted left barroso. 22:48 Bite description: animal information: vaccination(s) is not applicable. tm6 Historical: - Allergies: 19:51 Demerol; ap3 - PMHx: 19:51 Arthritis; Hypertension; ap3 - Immunization history:: Client reports having NOT received the Covid vaccine. Last tetanus immunization: up to date Flu vaccine is not up to date. - Social history:: Smoking status: Patient reports use of chewing tobacco. Screenin:52 Abuse screen: Denies threats or abuse. Nutritional screening: No deficits noted. ap3 Tuberculosis screening: No symptoms or risk factors identified. 22:18 [facility] ED Fall Risk Assessment (Adult) History of falling in the last 3 months, tm6 including since admission No falls in past 3 months (0 pts) Confusion or Disorientation No (0 pts) Intoxicated or Sedated No (0 pts) Impaired Gait No (0 pts) Mobility Assist Device Used No (0 pt) Altered Elimination No (0 pt) Score/Fall Risk Level 0 - 2 = Low Risk Oriented to surroundings, Maintained a safe environment. Assessment: 21:54 General: Appears in no apparent distress. Behavior is calm, cooperative. Pain: Denies tm6 pain. Neuro: Level of Consciousness is awake, alert, obeys commands, Oriented to person, place, time, situation. Cardiovascular: Capillary refill < 3 seconds Patient's skin is warm and dry. Respiratory: Airway is patent Respiratory effort is even, unlabored, Respiratory pattern is regular, symmetrical. GI: Abdomen is flat, non-distended. : No signs and/or symptoms were reported regarding the genitourinary system. EENT: No signs and/or symptoms were reported regarding the EENT system. Derm: Skin has lesions on left leg. Two quarter sized wounds from dog bite 6 weeks ago Skin is pink, warm \T\ dry. Wound noted left barroso and left leg Wound is yellow. Musculoskeletal: No signs and/or symptoms reported regarding the musculoskeletal system. 22:18 Reassessment: Patient and/or family updated on plan of care and expected duration. Pain tm6 level reassessed. Patient is alert, oriented x 3, equal unlabored respirations, skin warm/dry/pink. 22:46 Reassessment: Patient and/or family updated on plan of care and expected duration. Pain tm6 level reassessed. Patient is alert, oriented x 3, equal unlabored respirations, skin warm/dry/pink. Vital Signs: 19:49 BP 144 / 82; Pulse 64; Resp 16; Temp 97.7; Pulse Ox 100% ; Weight 65.77 kg; Height 5 ap3 ft. 5 in. ; 21:25 BP 134 / 81; Pulse 56; Pulse Ox 99% on R/A; Pain 0/10; tm6 22:18 BP 127 / 83; Pulse 55; Pulse Ox 98% on R/A; Pain 0/10; tm6 22:46 BP 124 / 83; Pulse 55; Resp 19; Temp 97.7(TE); Pulse Ox 99% on R/A; Pain 0/10; tm6 19:49 Body Mass Index 24.13 (65.77 kg, 165.1 cm) ap3 21:25 Pain Scale: Adult tm6 22:18 Pain Scale: Adult tm6 22:46 Pain Scale: Adult tm6 ED Course: 19:28 Patient arrived in ED. im 19:46 Nataliia Gonsalez FNP-C is [facility]. kb 19:46 Cullen Pretty MD is Attending Physician. kb 19:50 Triage completed. ap3 19:52 Arm band placed on right wrist. ap3 19:52 Patient has correct armband on for positive identification. Placed in gown. Bed in low tm6 position. Call light in reach. Side rails up X2. 21:05 Beronica Herrera, RN is Primary Nurse. tm6 22:18 No provider procedures requiring assistance completed. tm6 22:47 Provided Education on: wound care. tm6 22:47 Patient did not have IV access during this emergency room visit. tm6 Administered Medications: 22:40 Drug: Cephalexin PO 500 mg PO once Route: PO; tm6 22:40 Drug: Doxycycline PO 100 mg PO once Route: PO; tm6 Medication: 22:18 VIS not applicable for this client. tm6 Outcome: 22:27 Discharge ordered by . kb 22:46 Discharged to home ambulatory, with family, tm6 22:46 Condition: stable 22:46 Discharge instructions given to patient, family, Instructed on discharge instructions, follow up and referral plans. medication usage, wound care, Demonstrated understanding of instructions, follow-up care, medications, wound care, Prescriptions given X 2, 22:48 Patient left the ED. tm6 Signatures: Nataliia Gonsalez FNP-C FNP-Ckb Prokisch, Amanda, RN RN 3 Jacinta John Beronica Herrera, RITESH RN tm6
--- NOTE | 2023-10-28 22:28 | EDPHYS ---
Physician Documentation [facility] Name: Nathan Hurley Age: 73 yrs Sex: Male : 1950 Arrival Date: 10/28/2023 Time: 19:25 Bed 13 Private MD: ED Physician Cullen Pretty Historical: - Allergies: 10/27 19:51 Demerol; ap3 - PMHx: 19:51 Arthritis; Hypertension; ap3 - Immunization history:: Client reports having NOT received the Covid vaccine. Last tetanus immunization: up to date Flu vaccine is not up to date. - Social history:: Smoking status: Patient reports use of chewing tobacco. Vital Signs: 19:49 BP 144 / 82; Pulse 64; Resp 16; Temp 97.7; Pulse Ox 100% ; Weight 65.77 kg; Height 5 ap3 ft. 5 in. ; 21:25 BP 134 / 81; Pulse 56; Pulse Ox 99% on R/A; Pain 0/10; tm6 22:18 BP 127 / 83; Pulse 55; Pulse Ox 98% on R/A; Pain 0/10; tm6 22:46 BP 124 / 83; Pulse 55; Resp 19; Temp 97.7(TE); Pulse Ox 99% on R/A; Pain 0/10; tm6 19:49 Body Mass Index 24.13 (65.77 kg, 165.1 cm) ap3 21:25 Pain Scale: Adult tm6 22:18 Pain Scale: Adult tm6 22:46 Pain Scale: Adult tm6 MDM: 19:46 Patient medically screened. kb 10/27 21:17 Order name: Misc. Order: remove dressing; Complete Time: 21:54 kb 10/27 22:27 Order name: Dressing - Wound: wet to dry; Complete Time: 22:41 kb Administered Medications: 22:40 Drug: Cephalexin PO 500 mg PO once Route: PO; tm6 22:40 Drug: Doxycycline PO 100 mg PO once Route: PO; tm6 Disposition Summary: 10/28/23 22:27 Discharge Ordered Notes: Location: Home kb Condition: Stable kb Diagnosis - Local infection of the skin and subcutaneous tissue, unspecified kb Followup: kb - With: Emergency Department - When: As needed - Reason: Worsening of condition Followup: kb - With: Private Physician - When: 2 - 3 days - Reason: Recheck today's complaints, Continuance of care, Re-evaluation by your physician Discharge Instructions: - Discharge Summary Sheet kb - Wound Infection, [id number] kb Forms: - Medication Reconciliation Form kb - Thank You Letter kb - Antibiotic Education kb - Prescription Opioid Use kb - Patient Portal Instructions kb - Leadership Thank You Letter kb Prescriptions: - Cephalexin 500 mg Oral Capsule - take 1 capsule ORAL route every 8 hours for 10 days; 30 capsule; Refills: 0, kb Product Selection Permitted - Doxycycline Hyclate 100 mg Oral Tablet - take 1 tablet ORAL route every 12 hours; 20 tablet; Refills: 0, Product kb Selection Permitted Signatures: Nataliia Gonsalez FNP-C FNP-Ckb Prokisch, Amanda RN RN ap3 Beronica Herrera RN RN tm6
[2023-10-28 23:10] VITALS: TEMP 97.7
[2023-10-28 23:37] VITALS: BP 124/83; O2SAT 99
== END ==
LOC: ER 19:25
DX: L08.9 Local infection of the skin and subcutaneous tissue, unspecified (principal); I10 Essential (primary) hypertension; F17.220 Nicotine dependence, chewing tobacco, uncomplicated; Z88.5 Allergy status to narcotic agent

== ENCOUNTER 2023-12-21 07:09 | Emergency (ER) | payer OTHER ==
[2023-12-21 07:51] LABS: Absolute Lymphocytes (CBC) 2.1 K/uL (0.7-4.9); Absolute Monocytes 1.8 K/uL (0.1-1.3); Absolute Neutrophil 11.4 K/uL (1.8-8.0); Basophils % 0.3 % (0-1.3); Eosinophils % 0.1 % (0-4.4); Hematocrit 42.7 % (39.6-49.0); Hemoglobin 14.2 g/dL (13.6-17.9); Lymphocytes % 13.9 % (15.3-44.8); MCH 34.4 pg (27.0-35.0); MCHC 33.2 g/dL (32.0-36.0); MCV 103.7 fL (80-100); MPV 7.6 fL (7.6-11.3); Monocytes % 11.9 % (3.3-12.3); Neutrophils % 73.8 % (41.7-73.7); Platelets 244 thou/uL (152-406); RBC Red Blood Cell Count 4.12 M/uL (4.33-5.43)
[2023-12-21] MEDS ORDERED: DIPHENHYDRAMINE 50 MG/ML VIAL ONE (07:55)
[2023-12-21] MEDS ORDERED: METOCLOPRAMIDE 10 MG/2mL INJ ONE (07:56)
[2023-12-21] MEDS ORDERED: NA CHLORIDE 0.9% 1,000 ML ONE (07:56)
[2023-12-21 08:11] LABS: Albumin/Globulin Ratio 1.3 (1.1-1.8); Anion Gap 7.6 mEq/L (5.0-15.0); Bilirubin Total 0.8 mg/dL (0.2-1.0); Globulin 3.1 g/dL (2.3-3.5); Potassium 3.6 mEq/L (3.5-5.1); Protein, Total 7.1 g/dL (6.4-8.2)
[2023-12-21 08:26] LABS: INFLUENZA A NAA NEGATIVE (NEGATIVE); RESPIRATORY SYNCYTIAL VIR NAA NEGATIVE (NEGATIVE); SARS-COV-2 RT PCR NEGATIVE (NEGATIVE)
--- NOTE | 2023-12-21 09:34 | RAD REPORT ---
EXAM DESCRIPTION: CT - Abdomen Pelvis W Contrast - 12/21/2023 8:38 am CLINICAL HISTORY: ABD PAIN COMPARISON: Abdomen Pelvis W Contrast dated 09/06/2019; CT ABD PELVIS W CONTRAST dated 09/05/2014 TECHNIQUE: Thin cut axial CT imaging of the abdomen and pelvis was performed following intravenous a dministration of iodinated contrast. Multiplanar reformats were generated and reviewed. All CT scans are performed using dose optimization technique as appropriate and may include automated exposure control or mA/KV adjustment according to patient size. FINDINGS: No suspicious findings in the lung bases. The liver, spleen, adrenal glands, and pancreas show no suspicious findings. Gallbladder and biliary tree are also without suspicious finding although mild gallbladder distention is seen. Symmetric renal function is seen with no hydronephrosis or suspicious renal mass. Multiple left upper to mid pole small calculi largest measuring 5 mm. Rugal fold thickening along the body of the stomach. Nondistention limits evaluation. No dilated meme l loops or bowel wall thickening. No free air, free fluid or inflammatory stranding. No hernia, mass or bulky lymphadenopathy. The urinary bladder is without significant finding. No suspicious bony findings. IMPRESSION: Rugal fold thickening along the body of the stomach, may relate to ongoing gastritis. Nonobstructing left renal calculi up to 5 mm in greatest dimension.
--- NOTE | 2023-12-21 09:41 | ER ---
Nurse's Notes [facility] Name: Nathan Hurley Age: 73 yrs Sex: Male : 1950 Arrival Date: 12/21/2023 Time: 07:09 Bed 3 Private MD: Diagnosis: Acute gastritis Presentation: 12/20 07:16 Chief complaint: Patient states: vomiting X 5 days, unable to keep fluids down, has iw pain all over . he was seen at an ER on Friday , had CT , has been on his nausea medicine and still getting sick. Coronavirus screen: Client presents with at least one sign or symptom that may indicate coronavirus-19. Ebola Screen: Patient negative for fever greater than or equal to 101.5 degrees Fahrenheit, and additional compatible Ebola Virus Disease symptoms Patient denies exposure to infectious person. Patient denies travel to an Ebola-affected area in the 21 days before illness onset. No symptoms or risks identified at this time. Initial Sepsis Screen: Does the patient meet any 2 criteria? No. Patient's initial sepsis screen is negative. Does the patient have a suspected source of infection? No. Patient's initial sepsis screen is negative. Risk Assessment: Do you want to hurt yourself or someone else? Patient reports no desire to harm self or others. Onset of symptoms was December 16, 2023. 07:16 Method Of Arrival: Ambulatory iw 07:16 Acuity: ANTONIO 3 iw Historical: - Allergies: 07:18 Demerol; iw - PMHx: 07:18 Arthritis; Hypertension; iw - Immunization history:: Adult Immunizations not up to date. - Infectious Disease History:: Denies. - Social history:: Smoking status: Patient denies any tobacco usage or history of. Screenin:20 [facility] ED Fall Risk Assessment (Adult) History of falling in the last 3 months, aa5 including since admission No falls in past 3 months (0 pts) Confusion or Disorientation No (0 pts) Intoxicated or Sedated No (0 pts) Impaired Gait No (0 pts) Mobility Assist Device Used No (0 pt) Altered Elimination No (0 pt) Score/Fall Risk Level 0 - 2 = Low Risk Oriented to surroundings, Maintained a safe environment, Educated pt \T\ family on fall prevention, incl call for assistance when getting out of bed. Nutritional screening: No deficits noted. 07:47 Abuse screen: Denies threats or abuse. Denies injuries from another. Tuberculosis ss screening: Never had TB. Assessment: 07:20 General: Appears comfortable, Behavior is calm, cooperative. Pain: Complains of pain in aa5 umbilical area Pain currently is 2 out of 10 on a pain scale. Quality of pain is described as sharp, Pain began 5 days ago Is intermittent. Neuro: Level of Consciousness is awake, alert, obeys commands, Oriented to person, place, time, situation. Cardiovascular: Heart tones S1 S2 present Rhythm is regular. Respiratory: Airway is patent Respiratory effort is even, unlabored, Respiratory pattern is regular, symmetrical. GI: Abdomen is flat, non-distended, Bowel sounds present X 4 quads. Abd is soft X 4 quads Reports nausea, vomiting, since 5 days ago, reports diarrhea Friday but none since then. : No signs and/or symptoms were reported regarding the genitourinary system. EENT: No signs and/or symptoms were reported regarding the EENT system. Derm: Skin is pink, warm \T\ dry. Musculoskeletal: Range of motion: intact in all extremities. 08:00 Reassessment: Patient is alert, oriented x 3, equal unlabored respirations, skin aa5 warm/dry/pink. 08:27 Reassessment: Pt to CT now VIA wheelchair with transportation Aamir hsu. aa5 08:27 Reassessment: Patient is alert, oriented x 3, equal unlabored respirations, skin aa5 warm/dry/pink. 10:00 Reassessment: Awaiting IV fluids to complete before d/c home, IV fluids were paused aa5 from transport to and from CT. . 10:00 Reassessment: Patient is alert, oriented x 3, equal unlabored respirations, skin aa5 warm/dry/pink. 10:30 Reassessment: Patient is alert, oriented x 3, equal unlabored respirations, skin aa5 warm/dry/pink. Vital Signs: 07:16 BP 117 / 82; Pulse 76; Resp 16; Pulse Ox 100% on R/A; Weight 54.43 kg; Height 5 ft. 5 iw in. ; 08:30 BP 120 / 80; Pulse 74; Resp 14 S; Pulse Ox 99% on R/A; aa5 09:30 BP 115 / 64; Pulse 70; Resp 15 S; Pulse Ox 100% on R/A; aa5 07:16 Body Mass Index 19.97 (54.43 kg, 165.1 cm) iw ED Course: 07:11 Patient arrived in ED. ec2 07:12 Cullen Pretty MD is Attending Physician. ec2 07:17 Triage completed. iw 07:18 Arm band placed on. iw 07:24 Tess Phipps, RITESH is Primary Nurse. aa5 07:35 Initial lab(s) drawn, by ED staff, sent to lab. Inserted saline lock: 20 gauge in right aa5 antecubital area, using aseptic technique. Blood collected. IV inserted by Kaitlyn Newell RN. 07:40 EKG done, by ED staff, reviewed by Cullen Pretty MD. aa5 07:47 Patient has correct armband on for positive identification. Placed in gown. Bed in low ss position. Call light in reach. Side rails up X 1. meat supervisor on. Pulse ox on. NIBP on. 08:40 CT Abd/Pelvis - IV Contrast Only In Process Unspecified. EDMS 09:41 Conner Gerardo MD is Referral Physician. ec2 09:41 Referral Physician role handed off by Conner Gerardo MD ec2 10:20 IV discontinued, intact, bleeding controlled, No redness/swelling at site. Pressure aa5 dressing applied. 10:30 No provider procedures requiring assistance completed. aa5 Administered Medications: 08:00 Drug: NS 0.9% IV 1000 ml IV at 1 bolus Per protocol; 1000 mL bolus Route: IV; Rate: 1 aa5 bolus; Site: right antecubital; 10:20 Follow up: IV Status: Completed infusion; IV Intake: 1000ml aa5 08:00 Drug: diphenhydrAMINE IVP 50 mg IVP once Route: IVP; Site: right antecubital; aa5 08:15 Follow up: Response: No adverse reaction aa5 08:01 Drug: metoCLOPramide IVP 10 mg IVP once; over 1 to 2 minutes Route: IVP; Site: right aa5 antecubital; 08:15 Follow up: Response: No adverse reaction aa5 Medication: 08:06 VIS not applicable for this client. aa5 Intake: 10:20 IV: 1000ml; Total: 1000ml. aa5 Outcome: 09:41 Discharge ordered by . ec2 10:30 Discharged to home ambulatory, with family, aa5 10:30 Condition: stable 10:30 Discharge instructions given to patient, Instructed on discharge instructions, follow up and referral plans. medication usage, Demonstrated understanding of instructions, follow-up care, medications, Prescriptions given X 2, 10:32 Patient left the ED. aa5 Signatures: Dispatcher [employer] Aubree Pereira RN RN iw Tess Phipps RN RN aa5 Kaitlyn Newell RN RN ss Cullen Pretty MD MD ec2 Corrections: (The following items were deleted from the chart) 07:18 07:16 Chief complaint: Patient states: vomiting X 5 days, unable to keep fluids down, iw has pain all over iw 07:18 07:16 BP 117 / 82; Pulse 76bpm; Resp 16bpm; Pulse Ox 100% RA; iw iw 11:08 08:27 Reassessment: Pt to CT now VIA wheelchair with transportation Aamir hsu aa5 11:11 10:30 IV discontinued, intact, bleeding controlled, No redness/swelling at site. aa5 Pressure dressing applied, aa5
--- NOTE | 2023-12-21 09:41 | EDPHYS ---
Physician Documentation [facility] Name: Nathan Hurley Age: 73 yrs Sex: Male : 1950 Arrival Date: 12/21/2023 Time: 07:09 Bed 3 Private MD: ED Physician Cullen Pretty HPI: 12/20 07:31 This 73 yrs old Male presents to ER via Ambulatory with complaints of ec2 Vomiting, Weakness. 07:31 Patient arrives today for evaluation of nausea and vomiting as well as generalized ec2 weakness. Patient reports for the past several days he has been having nausea and vomiting and decreased p.o. intake, patient has been taking Zofran with minimal alleviation symptoms. Patient was seen several days ago, had CT imaging that was reportedly nonacute per family member in the room. Reports no urinary complaints, denies any cough or cold symptoms.. Historical: - Allergies: 07:18 Demerol; iw - PMHx: 07:18 Arthritis; Hypertension; iw - Immunization history:: Adult Immunizations not up to date. - Infectious Disease History:: Denies. - Social history:: Smoking status: Patient denies any tobacco usage or history of. ROS: 07:31 Constitutional: as per hpi ec2 Exam: 07:31 Constitutional: GEN: NAD Head: atraumatic Eyes: EOMI Ears: External ears are ec2 normal. CV: regular rate LUNGS: no respiratory distress ABD: non-distended, soft, nontender, no guarding, not rigid SKIN: no evidence of rashes MSK: no evidence of trauma NEURO: moves all extremities equally Vital Signs: 07:16 BP 117 / 82; Pulse 76; Resp 16; Pulse Ox 100% on R/A; Weight 54.43 kg; Height 5 ft. 5 iw in. ; 08:30 BP 120 / 80; Pulse 74; Resp 14 S; Pulse Ox 99% on R/A; aa5 09:30 BP 115 / 64; Pulse 70; Resp 15 S; Pulse Ox 100% on R/A; aa5 07:16 Body Mass Index 19.97 (54.43 kg, 165.1 cm) iw MDM: 07:19 Patient medically screened. ec2 07:31 Data reviewed: vital signs. ED course: Patient arrives today for evaluation of nausea ec2 and vomiting. Examination remarkable for well-appearing nontoxic dividual is otherwise in no acute distress with a reassuring abdominal examination. Patient with reassuring vital signs as well. Will obtain lab work, urine studies, treat the patient symptoms and reassess. Evaluate for process such as gastroenteritis, dehydration, or dysfunction, electrolyte disturbances.. 07:45 ED course: EKG independently reviewed and interpreted by me, shows normal sinus rhythm, ec2 rate of 72, no acute ST segment elevations, intervals are nonconcerning.. 08:11 ED course: CBC with leukocytosis noted, will obtain CT imaging as well to evaluate for ec2 intra-abdominal infection.. 08:20 ED course: Metabolic profile shows appropriate electrolytes, renal function with a ec2 creatinine 1.21 and a GFR of 63. Lipase within normal ranges, troponin within normal ranges. Pending urine studies, viral swab, CT imaging. . 09:38 ED course: CT imaging shows gastritis, nonobstructing renal calculi. Will start the ec2 patient on Protonix, have the patient follow-up outpatient with GI. . 09:41 ED course: Patient does have scheduled endoscopy for early next month. Will discharge ec2 home. Return precautions given. . 0512 07:31 Order name: CBC with Diff; Complete Time: 08:10 ec2 12/20 07:31 Order name: CMP; Complete Time: 08:20 ec2 12/20 07:31 Order name: Lipase; Complete Time: 08:20 ec2 /12 07:31 Order name: COVID-19/FLU A+B/RSV; Complete Time: 08:48 ec2 12/20 07:31 Order name: Troponin High Sensitivity; Complete Time: 08:20 ec2 12 08:11 Order name: CT Abd/Pelvis - IV Contrast Only; Complete Time: 09:38 ec2 / 07:31 Order name: IV Saline Lock; Complete Time: 07:45 ec2 12/20 07:31 Order name: Labs collected and sent; Complete Time: 07:45 ec2 12/20 07:31 Order name: EKG - Nurse/Tech; Complete Time: 07:45 ec2 Administered Medications: 08:00 Drug: NS 0.9% IV 1000 ml IV at 1 bolus Per protocol; 1000 mL bolus Route: IV; Rate: 1 aa5 bolus; Site: right antecubital; 10:20 Follow up: IV Status: Completed infusion; IV Intake: 1000ml 5 08:00 Drug: diphenhydrAMINE IVP 50 mg IVP once Route: IVP; Site: right antecubital; aa5 08:15 Follow up: Response: No adverse reaction aa5 08:01 Drug: metoCLOPramide IVP 10 mg IVP once; over 1 to 2 minutes Route: IVP; Site: right aa5 antecubital; 08:15 Follow up: Response: No adverse reaction aa5 Disposition Summary: 12/21/23 09:41 Discharge Ordered Notes: Location: Home ec2 Condition: Stable ec2 Diagnosis - Acute gastritis ec2 Followup: ec2 - With: Conner Gerardo MD - When: - Reason: Recheck today's complaints Followup: ec2 - With: Private Physician - When: - Reason: Recheck today's complaints Discharge Instructions: - Discharge Summary Sheet ec2 - Gastritis, Adult, [id number] ec2 Forms: - Medication Reconciliation Form ec2 - Antibiotic Education ec2 - Prescription Opioid Use ec2 - Patient Portal Instructions ec2 - Leadership Thank You Letter ec2 Prescriptions: - Compazine 10 mg Oral Tablet - take 1 tablet ORAL route every 8 hours As needed; 20 tablet; Refills: 0, ec2 Product Selection Permitted - Protonix 40 mg Oral Tablet - take 1 tablet ORAL route once daily; 30 tablet; Refills: 0, Product Selection ec2 Permitted Signatures: Dispatcher [employer] Aubree Pereira RN RN iw Calderon, Audri, RN RN aa5 Culeln Pretty MD MD ec2 Corrections: (The following items were deleted from the chart) 07:32 07:31 CBC+H.LAB.BRZ ordered. EDMS EDMS 07:32 07:31 COMPREHENSIVE METABOLIC PANEL+C.LAB.BRZ ordered. EDMS EDMS 07:32 07:31 LIPASE+C.LAB.BRZ ordered. EDMS EDMS 07:32 07:31 Urinalysis+U.LAB.BRZ ordered. EDMS EDMS 07:32 07:31 COVID-19/FLU A+B/RSV+MOL.LAB.BRZ ordered. EDMS EDMS 07:32 07:31 Troponin High Sensitivity+C.LAB.BRZ ordered. EDMS EDMS
[2023-12-21 10:50] VITALS: BP 117/82; O2SAT 100
--- NOTE | 2023-12-22 13:20 | EKG ---
Test Date: 2023-12-21 Test Time: 07:40:22 Marine Animal Trainer: EMILIANA MEASUREMENT RESULTS: Intervals: Rate: 72 [place]: 122 QRSD: 90 QT: 396 QTc: 433 [place]: P: 48 [place]: 122 QRS: 71 T: 52 INTERPRETIVE STATEMENTS: Normal sinus rhythm Normal ECG Compared to ECG 09/24/2014 01:55:40 Sinus bradycardia no longer present Electronically Signed On 12-22-23 13:17:27 CDT by Jignesh Shelby
== END 2023-12-21 10:32 | disposition home or self-care (01) ==
LOC: ER 07:09
DX: K29.00 Acute gastritis without bleeding (principal); Z11.52 Encounter for screening for COVID-19; I10 Essential (primary) hypertension; Z88.5 Allergy status to narcotic agent
CPT/HCPCS: 96361; 93005; 85025; 36415; 84484; 83690; 80053; 0241U; 74177; 96375; 96374; 99285; Q9967; J2765; J1200; J7030

== ENCOUNTER 2024-03-30 11:35 | Inpatient (IN) | payer OTHER ==
[2024-03-30 12:48] LABS: Absolute Lymphocytes (CBC) 1.2 K/uL (0.7-4.9); Absolute Monocytes 0.8 K/uL (0.1-1.3); Absolute Neutrophil 10.2 K/uL (1.8-8.0); Basophils % 0.3 % (0-1.3); Hematocrit 37.4 % (39.6-49.0); Hemoglobin 11.9 g/dL (13.6-17.9); Lymphocytes % 9.6 % (15.3-44.8); MCH 33.9 pg (27.0-35.0); MCHC 31.9 g/dL (32.0-36.0); MCV 106.2 fL (80-100); MPV 8.9 fL (7.6-11.3); Monocytes % 6.3 % (3.3-12.3); Neutrophils % 83.8 % (41.7-73.7); Nucleated Red Blood Cells % 0.1 % (0-0); Platelets 201 thou/uL (152-406); RBC Red Blood Cell Count 3.52 M/uL (4.33-5.43); Red Cell Distribution Width 14.4 % (12.1-15.2)
[2024-03-30 12:58] LABS: PT Prothrombin Time 11.4 SECONDS (9.4-12.5); PTT, Activated Partial Thromb 20.2 SECONDS (24.3-36.9); Protime INR 1.02
[2024-03-30 13:06] LABS: Albumin 3.8 g/dL (3.4-5.0); Albumin/Globulin Ratio 1.1 (1.1-1.8); Anion Gap 8.3 mEq/L (5.0-15.0); Bilirubin Total 0.3 mg/dL (0.2-1.0); Globulin 3.4 g/dL (2.3-3.5); Potassium 4.3 mEq/L (3.5-5.1); Protein, Total 7.2 g/dL (6.4-8.2)
[2024-03-30 13:28] LABS: Platelet Estimate ADEQ; White Blood Cell Scan OK (OK)
[2024-03-30 13:29] LABS: Blood Morphology Comment NOT SEEN (NOT SEEN)
--- NOTE | 2024-03-30 14:44 | RAD REPORT ---
EXAM DESCRIPTION: CT - Abdomen Pelvis W Contrast - 03/30/2024 2:29 pm CLINICAL HISTORY: hematemesis;Abd pain COMPARISON: Abdomen Pelvis W Contrast dated 12/21/2023; Abdomen Pelvis W Contrast dated 09/06/2019 ; CT ABD PELVIS W CONTRAST dated 09/05/2014 TECHNIQUE: Thin cut axial CT imaging of the abdomen and pelvis was performed following intravenous a dministration of 100 mL Isovue 300. Multiplanar reformats were generated and reviewed. All CT scans are performed using dose optimization technique as appropriate and may include automated exposure control or mA/KV adjustment according to patient size. FINDINGS: No suspicious findings in the lung bases. The liver, spleen, adrenal glands, and pancreas show no suspicious findings. Gallbladder and biliary tree are also without suspicious finding. Symmetric renal function is seen with no hydronephrosis or suspicious renal mass. Small left renal ca lculi not exceeding 3 mm. Moderate fluid distention of the stomach common duodenum, and proximal jejunum. No dilated bowel loop s otherwise, no focal transition of bowel caliber, or bowel wall thickening. No free air, free fluid or inflammatory stranding. No hernia, mass or bulky lymphadenopathy. The urinary bladder is without s ignificant finding. Streak artifact and mildly facet from bilateral hip arthroplasty hardware limits evaluation in the pelvis. No suspicious bony findings. IMPRESSION: No specific mild fluid distention of the stomach, duodenum, and proximal jejunum. No sandra dence of obstruction. Nonobstructing left renal calculi largest measuring 3 mm.
[2024-03-30] MEDS ORDERED: ONDANSETRON 4 MG/2 ML VIAL ONE (15:21)
[2024-03-30] MEDS ORDERED: PANTOPRAZOLE 40 MG INJ ONE (15:22)
[2024-03-30] MEDS ORDERED: NA CHLORIDE 0.9% 250 ML ONE (15:22)
--- NOTE | 2024-03-30 16:12 | EDPHYS ---
Physician Documentation [facility] Name: Nathan Hurley Age: 73 yrs Sex: Male : 1950 Arrival Date: 03/30/2024 Time: 11:35 Bed DIS1 Private MD: ED Physician Micky Clancy HPI: 03/30 13:46 This 73 yrs old Male presents to ER via Ambulatory with complaints of Vomiting blood, rn Diarrhea, Bloody Stools. 13:46 The patient presents to the emergency department with nausea, vomiting, abdominal pain. rn Onset: The symptoms/episode began/occurred today. Possible causes: unknown. The symptoms are aggravated by nothing. The symptoms are alleviated by nothing. Severity of symptoms: At their worst the symptoms were moderate in the emergency department the symptoms are unchanged. The patient has experienced a previous episode. Patient reports upper abdominal pain with nausea and vomiting, has had several episodes of coffee-ground emesis and dark black stool. Takes a lot of ibuprofen on a daily basis. Does not take blood thinners. Reports fatigue and malaise but no shortness of breath.. Historical: - Allergies: 11:58 Demerol; db - PMHx: 11:58 Arthritis; Hypertension; db 11:58 ABDOMINAL STRICTURE; db - Immunization history:: Adult Immunizations unknown. - Infectious Disease History:: Denies. - Social history:: Smoking status: Patient reports use of chewing tobacco. - Family history:: not pertinent. - Hospitalizations: : No recent hospitalization is reported. ROS: 13:46 Constitutional: Negative for fever, chills, and weight loss, Cardiovascular: Negative rn for chest pain, palpitations, and edema, Respiratory: Negative for shortness of breath, cough, wheezing, and pleuritic chest pain, Abdomen/GI: Positive for upper abdominal pain with vomiting coffee-ground emesis MS/Extremity: Negative for injury and deformity, Skin: Negative for injury, rash, and discoloration, Neuro: Positive for generalized weakness Exam: 13:46 Constitutional: This is a well developed, well nourished patient who is awake, alert, rn and in no acute distress. Cardiovascular: Regular rate and rhythm. No pulse deficits. Respiratory: No increased work of breathing, no retractions or nasal flaring. Abdomen/GI: Soft, mild epigastric and left upper quadrant abdominal tenderness. No peritoneal signs MS/ Extremity: Pulses equal, no cyanosis. Neuro: Awake and alert, GCS 15 Vital Signs: 11:54 BP 120 / 69; Pulse 69; Resp 16; Temp 97.9(O); Pulse Ox 99% ; Weight 58.97 kg; Height 5 db ft. 5 in. ; 16:51 BP 125 / 69; Pulse 56; Pulse Ox 99% on R/A; ap3 11:54 Body Mass Index 21.63 (58.97 kg, 165.1 cm) db MDM: 11:50 Patient medically screened. rn 16:10 Differential diagnosis: Nonspecific abd pain, gastritis, Gastric ulcer, peptic ulcer rn disease, esophagitis. Data reviewed: vital signs, nurses notes, lab test result(s), radiologic studies, CT scan, and as a result, I will admit patient. Consideration of Admission/Observation Patient was admitted/placed on observation. Escalation of care including admission/observation considered. Counseling: I had a detailed discussion with the patient and/or guardian regarding the historical points, exam findings, and any diagnostic results supporting the discharge/admit diagnosis, lab results, radiology results, the need for further work-up and treatment in the hospital. Response to treatment: the patient's symptoms have markedly improved after treatment, and as a result, I will discharge patient. 03/30 12:03 Order name: CBC with Diff; Complete Time: 13:31 03/30 12:03 Order name: CMP; Complete Time: 13: 03/30 12:03 Order name: Lipase; Complete Time: 13: 03/30 12:03 Order name: Protime (+inr); Complete Time: 13: 03/30 12:03 Order name: Ptt, Activated; Complete Time: 13: 03/30 12:52 Order name: CBC Smear Scan; Complete Time: 13:31 EDVT 03/30 18:01 Order name: Hemoglobin rn 03/30 12:03 Order name: CT Abd/Pelvis - IV Contrast Only; Complete Time: 14:58 rn 03/30 17:02 Order name: CONS Physician Consult [facility] 03/30 12:03 Order name: IV Saline Lock; Complete Time: 12:28 rn 03/30 12:03 Order name: Labs collected and sent; Complete Time: 12:28 rn Administered Medications: 15:32 Drug: Ondansetron IVP 4 mg IVP once; over 2 minutes Route: IVP; Site: left antecubital; tm6 17:20 Follow up: Response: No adverse reaction tm6 15:32 Drug: Pantoprazole IVP 40 mg IVP once Route: IVP; Site: left antecubital; tm6 17:20 Follow up: Response: No adverse reaction tm6 15:32 Drug: Pantoprazole IV 8 mg/hr IV at 25 ml/hr continuous; (Standard dilution is 80 mg in tm6 250 mL NS) Route: IV; Rate: 25 ml/hr; Site: left antecubital; 17:34 Drug: morphine IVP or IV 2 mg IVP once over 4 mins Route: IVP; Infused Over: 4 mins; tm6 Site: left antecubital; Disposition Summary: 03/30/24 16:11 Hospitalization Ordered Notes: Hospitalization Status: Inpatient Admission rn Provider: Derian Pulliam rn [facility] rn Condition: Stable rn Problem: new rn Symptoms: have improved rn Bed/Room Type: Standard rn Room Assignment: 414(03/30/24 19:01) [facility] Diagnosis - Hematemesis rn - Anemia, unspecified rn Forms: - Medication Reconciliation Form rn - SBAR form rn - Leadership Thank You Letter rn Signatures: Dispatcher [employer] EDMS Micky Clancy MD MD rn Benton, Danielle RN Kristi Calhoun [facility] Beronica Herrera RN RN tm6 Corrections: (The following items were deleted from the chart) 12:03 12:03 CBC+H.LAB.BRZ ordered. EDMS EDMS 12:03 12:03 COMPREHENSIVE METABOLIC PANEL+C.LAB.BRZ ordered. EDMS EDMS 12:03 12:03 LIPASE+C.LAB.BRZ ordered. EDMS EDMS 12:03 12:03 PROTIME (+INR)+COAG.LAB.BRZ ordered. EDMS EDMS 12:03 12:03 PTT, ACTIVATED+COAG.LAB.BRZ ordered. EDMS EDMS 19:01 16:11 rn angie
--- NOTE | 2024-03-30 16:12 | ER ---
Nurse's Notes [facility] Name: Nathan Hurley Age: 73 yrs Sex: Male : 1950 Arrival Date: 03/30/2024 Time: 11:35 Bed DIS1 Private MD: Diagnosis: Hematemesis;Anemia, unspecified Presentation: 03/30 11:54 Chief complaint: Patient states: COFFEE GROUND EMESIS X 2 STARTED TODAY AT 0800. NEVER db HAPPENED BEFORE. TAKES ANTI-INFLAMMATORIES. DENIES ETOH. HX OF ABD STRICTURES. CALLED DOCTOR AND WAS TOLD TO COME IN. BLACK STOOLS. Coronavirus screen: Client denies travel out of the [place] in the last 14 days. At this time, the client does not indicate any symptoms associated with coronavirus-19. Ebola Screen: Patient negative for fever greater than or equal to 101.5 degrees Fahrenheit, and additional compatible Ebola Virus Disease symptoms Patient denies exposure to infectious person. Patient denies travel to an Ebola-affected area in the 21 days before illness onset. No symptoms or risks identified at this time. 11:54 Method Of Arrival: Ambulatory db 11:54 Initial Sepsis Screen: Does the patient meet any 2 criteria? No. Patient's initial db sepsis screen is negative. Does the patient have a suspected source of infection? No. Patient's initial sepsis screen is negative. Risk Assessment: Do you want to hurt yourself or someone else? Patient reports no desire to harm self or others. Onset of symptoms was March 30, 2024. 11:54 Acuity: ANTONIO 2 db Triage Assessment: 11:59 General: Appears in no apparent distress. comfortable, Behavior is calm, cooperative. db Pain: Complains of pain in abdomen. Neuro: Level of Consciousness is awake, alert, obeys commands, Oriented to person, place, time, situation. Cardiovascular: No deficits noted. Respiratory: Airway is patent Respiratory effort is even, unlabored, Respiratory pattern is regular, symmetrical. GI: Abdomen is flat, non-distended, Patient currently denies bloody stool, diarrhea, nausea, vomiting, BLACK STOOL. COFFEE GROUND EMESIS. Historical: - Allergies: 11:58 Demerol; db - PMHx: 11:58 Arthritis; Hypertension; db 11:58 ABDOMINAL STRICTURE; db - Immunization history:: Adult Immunizations unknown. - Infectious Disease History:: Denies. - Social history:: Smoking status: Patient reports use of chewing tobacco. - Family history:: not pertinent. - Hospitalizations: : No recent hospitalization is reported. Assessment: 15:47 General: Appears in no apparent distress. Behavior is calm, cooperative. Pain: tm6 Complains of pain in abdomen Pain currently is 3 out of 10 on a pain scale. Pain began years ago. Neuro: Level of Consciousness is awake, alert, obeys commands, Oriented to person, place, time, situation. Cardiovascular: Patient's skin is warm and dry. Respiratory: Airway is patent Respiratory effort is even, unlabored, Respiratory pattern is regular, symmetrical. GI: Abdomen is flat, non-distended, Reports bloody stool, throwing up blood. : No signs and/or symptoms were reported regarding the genitourinary system. EENT: No signs and/or symptoms were reported regarding the EENT system. Derm: No signs and/or symptoms reported regarding the dermatologic system. Musculoskeletal: No signs and/or symptoms reported regarding the musculoskeletal system. Vital Signs: 11:54 BP 120 / 69; Pulse 69; Resp 16; Temp 97.9(O); Pulse Ox 99% ; Weight 58.97 kg; Height 5 db ft. 5 in. ; 16:51 BP 125 / 69; Pulse 56; Pulse Ox 99% on R/A; ap3 11:54 Body Mass Index 21.63 (58.97 kg, 165.1 cm) db ED Course: 11:38 Patient arrived in ED. mr 11:50 Micky Clancy MD is Attending Physician. rn 11:58 Triage completed. db 11:58 Arm band placed on right wrist. Patient placed in waiting room. db 12:18 Missed attempt(s): 22 gauge in left antecubital area. Bleeding controlled, band aid bc6 applied, catheter tip intact. 12:28 Protime (+inr) Sent. bc6 12:28 Ptt, Activated Sent. bc6 12:28 CBC with Diff Sent. bc6 12:28 CMP Sent. bc6 12:28 Lipase Sent. bc6 12:28 Inserted saline lock: 20 gauge in left upper arm, using aseptic technique. Flushed with bc6 10 mL NS. 12:28 Initial lab(s) drawn, by me, sent to lab. bc6 13:35 CT Abd/Pelvis - IV Contrast Only In Process Unspecified. EDMS 15:10 Patient placed in an exam room, on a stretcher. tm6 15:18 Beronica Herrera, RITESH is Primary Nurse. tm6 16:11 Derian Pulliam MD is Hospitalizing Provider. rn Administered Medications: 15:32 Drug: Ondansetron IVP 4 mg IVP once; over 2 minutes Route: IVP; Site: left antecubital; tm6 17:20 Follow up: Response: No adverse reaction tm6 15:32 Drug: Pantoprazole IVP 40 mg IVP once Route: IVP; Site: left antecubital; tm6 17:20 Follow up: Response: No adverse reaction tm6 15:32 Drug: Pantoprazole IV 8 mg/hr IV at 25 ml/hr continuous; (Standard dilution is 80 mg in tm6 250 mL NS) Route: IV; Rate: 25 ml/hr; Site: left antecubital; 17:34 Drug: morphine IVP or IV 2 mg IVP once over 4 mins Route: IVP; Infused Over: 4 mins; tm6 Site: left antecubital; Outcome: 16:11 Decision to Hospitalize by Provider. rn 19:46 Patient left the ED. vc1 Signatures: Dispatcher [employer] EDMS Lakia Mondragon, Alpesh Betts mr Micky Clancy MD MD rn Prokisch, Amanda, RN RN ap3 Elsie Kwon RN RN vc1 Jasmin Richards RN RN db Christelle Gould 6 Beronica Herrera, RN RN tm6 Corrections: (The following items were deleted from the chart) 58 11:54 Chief complaint: Patient states: COFFEE GROUND EMESIS X 2 STARTED TODAY AT 0800. db NEVER HAPPENED BEFORE. TAKES ANTI-INFLAMMATORIES. DENIES ETOH. HX OF ABD STRICTURES. CALLED DOCTOR AND WAS TOLD TO COME IN db 11:58 11:54 Acuity: ANTONIO 3 db db
[2024-03-30] MEDS ORDERED: MORPHINE 2 MG/ML SYR ONE (17:29)
[2024-03-30 19:59] VITALS: BMI 21.6
[2024-03-30] MEDS: PANTOPRAZOLE INJ 80 MG in NA CHLORIDE 0.9% 250 ML IV SCH (20:09)
[2024-03-30] MEDS: D5 0.45 NS 1,000 ML IV SCH ×2 (20:09→20:46)
[2024-03-30] MEDS ORDERED: ONDANSETRON 4 MG/2 ML VIAL IV PRN (20:09)
[2024-03-30] MEDS ORDERED: MORPHINE 2 MG/ML SYR IM PRN (23:54)
[2024-03-31] MEDS: MORPHINE 2 MG/ML SYR IV PRN (00:08)
[2024-03-31] MEDS: PANTOPRAZOLE 40 MG INJ ONE (02:02)
[2024-03-31] MEDS: NA CHLORIDE 0.9% 250 ML ONE (02:03)
[2024-03-31] MEDS: MORPHINE 4 MG/ML SYR ONE (05:01)
[2024-03-31] MEDS: LEVOTHYROXINE SOD 0.125 MG TAB PO SCH (05:07)
[2024-03-31 06:11] LABS: Absolute Lymphocytes (CBC) 1.6 K/uL (0.7-4.9); Absolute Monocytes 0.6 K/uL (0.1-1.3); Absolute Neutrophil 5.4 K/uL (1.8-8.0); Basophils % 0.2 % (0-1.3); Eosinophils % 0.2 % (0-4.4); Hematocrit 25.3 % (39.6-49.0); Hemoglobin 8.5 g/dL (13.6-17.9); Lymphocytes % 20.6 % (15.3-44.8); MCH 35.3 pg (27.0-35.0); MCHC 33.6 g/dL (32.0-36.0); MPV 7.4 fL (7.6-11.3); Monocytes % 8.4 % (3.3-12.3); Neutrophils % 70.6 % (41.7-73.7); Platelets 218 thou/uL (152-406); RBC Red Blood Cell Count 2.41 M/uL (4.33-5.43); Red Cell Distribution Width 14.5 % (12.1-15.2)
[2024-03-31 06:29] LABS: ALT/SGPT 23 U/L (16-61); Albumin/Globulin Ratio 1.2 (1.1-1.8); Alkaline Phosphatase 42 U/L (45-117); Anion Gap 6.3 mEq/L (5.0-15.0); BUN Blood Urea Nitrogen 41 mg/dL (7-18); Bicarbonate 27 mEq/L (21-32); Bilirubin Total 0.3 mg/dL (0.2-1.0); Globulin 2.5 g/dL (2.3-3.5); Glomerular Filtration Rate 110 ml/min (=/>90); Glucose Level 104 mg/dL (74-106); Lipase 33 U/L (13-75); Potassium 4.3 mEq/L (3.5-5.1); Protein, Total 5.5 g/dL (6.4-8.2); Sodium Level 142 mEq/L (136-145)
[2024-03-31 06:30] LABS: AST/SGOT < 10 U/L (15-37); Bilirubin Direct < 0.2 mg/dL (0-0.2); Bilirubin Indirect, Calculated 0.1 mg/dL (0.2-0.8)
--- NOTE | 2024-03-31 06:47 | HP ---
Date of Admission: 03/30/2024 Chief Complaint: Vomiting blood. History Of Present Illness: This is a 73-year-old pleasant male patient who has longstanding history of some GI problems, has been under care of Dr. Bejarano who has also referred him to some other spe cialist in [place] for what it appears to be duodenal stenosis on basis of what the patient tells me. The patient states that in near future specialist in [place] is going to perform some procedure on him for this duodenal stricture. He has problem with chronic osteoarthritis involving multiple joint s and has been taking [id number] ibuprofen on a frequent basis and not necessarily daily basis. He was doing fine in his normal usual state of health until yesterday. He started to have problem with vomiting blood, so he came into emergency room today, and after he was evaluated, he was admitte d to the hospital with acute upper GI bleeding problem. Denies any fever or chills. Allergies: TO DEMEROL CAUSING NAUSEA AND VOMITING. Review of Systems: GI: As mentioned above. Musculoskeletal: Has chronic joint pain. All other systems reviewed and negative. Medications: According to his outpatient office record, he is on Tylenol with Codeine for chronic bharti int pain as prescribed by painter tumbling barrel, allopurinol 300 mg daily, amlodipine 10 mg uli y, hydralazine 10 mg 2 times a day, levothyroxine 125 mcg daily, lisinopril 20 mg 2 times a day, omep razole 40 mg daily, rosuvastatin 20 mg daily in the evening. Past Medical History: Significant for hypothyroidism, hypertension, mixed hyperlipidemia, gastroesop hageal reflux disease, diverticulosis, benign prostatic hypertrophy, osteoarthritis at multiple sites , and gout. Past Surgical History: Cataract surgery, hernia repair, and surgery on his wrist, knee, and hip. Family History: Father with colon cancer. Mother had coronary artery disease, diabetes, hypert ension, high cholesterol. Sister with high blood pressure. Social History: Negative for smoking, alcohol use. Physical Examination: Vital Signs: Temperature 97.9, pulse 69, respiratory rate 16, blood pressure 120/69, oxygen saturati on 99%. Height 5 feet 5 inches, weight 129 pounds. General: Awake, alert, oriented, not in distress. HEENT: Head atraumatic, normocephalic. Conjunctivae nonerythematous. Sclerae white. Mouth, no thr ush or edema noted. Ears/Nose, no mass, lesion, discharge noted. Neck: Supple. No JVD, lymph nodes, bruit, thyromegaly noted. Lungs: Bilateral good equal air entry. Clear to auscultation. No rhonchi. No rales. Heart: Normal heart sounds, no murmur or gallop. Abdomen: Soft, bowel sounds normal. No guarding, rigidity, tenderness, mass, hepatosplenomegaly, dis tention, or bruit noted. Extremities: No leg edema. No calf tenderness. Skin: No rash, ulcer, cellulitis. Lymphatics: No lymph node enlargement in neck, supraclavicular, infraclavicular region. Neuro: No focal neurological deficit. Chest: Unremarkable. External Genitalia: Deferred. Rectal: Deferred. Laboratory Data: White count 12.2, hemoglobin 11.9 on the initial blood work with platelets 201. Re peat hemoglobin was 10.1. Sodium 140, potassium 4.3, chloride 106, bicarb 30, BUN 50, creatinine 0.6 0, and glucose 110. Liver function tests unremarkable. CT scan of the abdomen and pelvis shows flui d distention of stomach, duodenum, and upper part of the jejunum. Impression: 1.Acute upper gastrointestinal bleeding. 2.Acute blood loss anemia. 3.Gastroesophageal reflux disease. 4.Hypothyroidism. 5.Hypertension. 6.Mixed hyperlipidemia. 7.Osteoarthritis, multiple sites. 8.Diverticulosis. Plan: We will go ahead and admit patient to hospital for further evaluation and management of this p roblem. The patient is appropriate for inpatient and is expected to spend 2 midnights in hospital. For upper GI bleed, we will go ahead and consult nutrition services associate and the patient was started on IV Protonix drip, which we will continue that right now. We will follow up with nutrition services associate for further evaluation and management. His normal nutrition services associate is Dr. Bejarano who is not on-call , and I did communicate with him and he is not available tomorrow, but he will be available day after tomorrow and today Dr. Gerardo who is on-call was consulted. For his acute blood loss anemia, we mazin l monitor hemoglobin, and if necessary, consider blood transfusion. For hypertension, we will contin ue antihypertensive medication as per order and I have ordered blood pressure medication at a lower d ose with holding matter. For his hyperlipidemia, we will continue statin therapy per order and no ne ed for any further intervention. For hypothyroidism, we will continue his levothyroxine per order an d no need for any further intervention on it. For osteoarthritis, patient should take pain medicatio n as prescribed by pain management physician and I have advised him not to take any nonsteroidal anti -inflammatory medications like Aleve, Advil, Motrin, ibuprofen, etc. Total time spent today 80 minut es including review of last office visit record from 11/17/2023, review of current emergency room rec ord, communication with ER physician, communication with his nutrition services associate, Dr. Bejarano, and pe rforming today's evaluation and management. I will see him tomorrow for followup. EDY/MODL Voice ID: [id number]
[2024-03-31] MEDS: lisinopriL 10 MG TAB PO SCH (09:00)
[2024-03-31] MEDS: HYDRALAZINE HCL 10 MG TABLET PO SCH (09:00)
[2024-03-31] MEDS: allopurinoL 300 MG TAB PO SCH (09:00)
[2024-03-31] MEDS: AMLODIPINE 5 MG TAB PO SCH (09:00)
[2024-03-31] MEDS: PANTOPRAZOLE INJ 80 MG in NA CHLORIDE 0.9% 250 ML IV SCH (11:06)
[2024-03-31] MEDS: Ringers Lactate 1,000 ML IV ONE (12:45)
[2024-03-31] MEDS ORDERED: LIDOCAINE 1% MPF 30 ML VIAL ONE (13:44)
[2024-03-31] MEDS ORDERED: propofoL 200 MG/20 ML VIAL IV ONE (13:44)
[2024-03-31 19:16] LABS: Hematocrit 21.9 % (39.6-49.0); Hemoglobin 7.2 g/dL (13.6-17.9)
--- NOTE | 2024-03-31 19:23 | CON ---
Date of Consultation: 03/31/2024 Reason For Consultation: Hematemesis x2 since yesterday with midepigastric pain, nausea, vomiting. History Of Present Illness: The patient is a 73-year-old white male with longstanding history of GI upset and duodenal stricture, status post duodenal stent in the past, he says approximately 3 years a go. He is in [place] and he came to the hospital with hematemesis x1 and then 1 more since admission, he reports it is today. The patient had a long history of duodenal stricture, dyspepsia, had a duode nal stent placed approximately 3 years ago in 2020. He reports unsure if the stent was taken out or not, but it appears it was. The patient states that he has had hematemesis. He denies any melena, h ematochezia, coffee-ground emesis, hematuria, hemoptysis. Past Medical History: Significant for duodenal stricture with duodenal stent placement in [place], [facility] since approximately 2020, osteoarthritis, hypertension, hyperlipidemia, gastroesophageal reflux disease, diverticulosis, benign prostatic hypertrophy, gout, cataract surgery, hernia repair, hypothy roidism, surgery of the wrist, knee, and hip by the chart review. Medications: Include Tylenol with Codeine for chronic joint pain per bottom painter, all opurinol, amlodipine, hydralazine, levothyroxine, lisinopril, omeprazole, and rosuvastatin. Allergies: TO DEMEROL CAUSES NAUSEA, VOMITING. Past Surgical History: Also includes cataract surgery, hernia surgery, surgery of the wrist, knee, a nd hip. Social History: , 2 kids, a son and a daughter. Tobacco, he dips about half a can a day for many years. No alcohol. Family History: Father of colon cancer, metastatic to lungs. Mother of chronic kidney dis ease with history of diabetes, hypertension, coronary artery disease, hyperlipidemia, in her 80s , it appears by the report. Physical Examination: Vital Signs: The patient is 5 foot 5 inches, 129 pounds, BMI of 21.6 kg/m sq. GENERAL: He is a well-nourished, well-developed male, lying in bed, in no acute distress. HEENT: Normocephalic, atraumatic. Anicteric. Pupils equal, round, and reactive to light. Extraocu lar movements intact. Oropharynx clear. Neck: Supple. No masses. Respirations: Clear to auscultation bilaterally. Cardiac: Regular rate and rhythm. Gastrointestinal: Positive bowel sounds. Soft, nontender, nondistended. No hepatosplenomegaly. Extremities: No clubbing, cyanosis, or edema. 2+ pulses. Neuro: Alert and oriented x3. Grossly nonfocal. 5/5 motor strength. Sensation intact to light edgar ch. Laboratory Data: The patient has white count of 7.6 down from 12.2 yesterday, hemoglobin 8.5 down fr om 11.9 yesterday, hematocrit 25.3, MCV of 105 down from 106 yesterday, platelet count of 218, polys of 71% down from 84% yesterday, lymphocytes 21% up from 10% yesterday, monocytes of 8%, eosinophils 0 .2%, PT 11.4, INR of 1.02, PTT 20.2. The patient has sodium 142, potassium 4.3, chloride 113, bicarb 27, BUN 41, creatinine of 0.5, glucose 104, calcium 8.2 down from 10.2 yesterday, total bilirubin 0. 3, direct bilirubin less than 0.2, AST of less than 10, ALT 23, alkaline phosphatase 42, total protei n 5.5, albumin 3.0, lipase 33, normal. Imaging Data: CT abdomen and pelvis, no acute finding. There is a 3 mm left kidney stone, seems to be nonobstructing. Impression: 1.Hematemesis x2 since yesterday with nausea, vomiting, midepigastric pain, which is improved. He r eports no nausea, vomiting, pain, or hematemesis now. 2.Anemia, hemoglobin from 11.9 down to 8.5 since admission. 3.History of duodenal stricture with duodenal stent placement in [place] in 2020, osteoarthritis, hy pothyroidism, hypertension, hyperlipidemia, gastroesophageal reflux disease, diverticulosis, benign p rostatic hypertrophy, gout, cataract surgery, hernia repair, and surgery of the hip, knee, and wrist in the past. Recommendations: 1.Continue serial H and H, transfuse p.r.n. 2.Continue PPI therapy. 3.EGD. 4.Keep the patient n.p.o. UCHE/MARIZA Voice ID: [id number] Report ID: [id number]
[2024-03-31] MEDS: ROSUVASTATIN 10 MG TAB PO SCH (21:39)
--- NOTE | 2024-03-31 22:41 | PN ---
Date of Progress Note: 03/31/2024 Subjective: The patient was seen this morning for followup. No new complaints or problems reported by the patient. Denies any abdominal pain, nausea, vomiting. No more hematemesis. After his admiss ion to the hospital, the patient had 2 episodes of hematemesis at home yesterday morning, but none si nce he has been to hospital. Objective: Vital Signs: Reviewed. HEENT: Unremarkable. Lungs: Clear to auscultation. Heart: Sounds normal. Abdomen: Soft. Bowel sounds normal. No guarding, rigidity, tenderness, distention. Extremities: No leg edema. Laboratory Data: White count this morning 7.6, hemoglobin 8.5, platelets 218. Sodium 142, potassium 4.3, chloride 113, bicarb 27, BUN 41, creatinine 0.46, glucose 104. Liver function tests unremarkab le. Lipase 33. Impression: 1.Upper GI bleeding. 2.Acute blood loss anemia. 3.Hypertension. 4.Duodenal stricture. Plan: We will continue IV fluid, IV Protonix per order. Continue antihypertensive medication per or laure. After I saw the patient during the course of day today, he had EGD done by Dr. Gerardo and I did call him this evening to discuss his EGD findings and he informed me that he did not find any eviden ce of gastritis or stomach ulcer, but he did find evidence of old blood in the body of the stomach an d he feels like that actually has come from duodenum and he did not see any active sign of any bleedi ng in the stomach. He noted severe stricture of duodenum and he was not able to pass the scope throu gh this strictured area. After communicating with Dr. Gerardo, I have called the patient's gastroente rologist, Dr. Bejarano, and discussed all these details and he is very much familiar with this patien t. He also worked with specialist at [facility] in [place] and the patient has seen t his physician in [place]. So, our plan is to go ahead and repeat another hemoglobin this evening and tomorrow morning. If his hemoglobin remained stable, then plan is to discharge him to go home with outpatient followup as soon as possible with those specialists in [place] and if we are concerned abo ut any significant drop in the hemoglobin, then we will have to consider to transfer him to [place] u nder care of those specialists and Dr. Bejarano is willing to help us facilitate this transfer if it becomes necessary. I will see him tomorrow morning for followup. We will consider blood transfusion if it becomes necessary. Once again this morning, I informed the patient not to take any aspirin or nonsteroidal anti-inflammatory medications like Aleve, Motrin, ibuprofen, naproxen, etc. EDY/MODL Voice ID: [id number] Report ID: [id number]
[2024-04-01] MEDS: NA CHLORIDE 0.9% 250 ML ONE (04:19)
[2024-04-01 10:14] LABS: Hematocrit 28.7 % (39.6-49.0); Hemoglobin 9.7 g/dL (13.6-17.9)
[2024-04-01 20:20] VITALS: BP 120/58; TEMP 97
[2024-04-01 21:38] VITALS: O2SAT 99
--- NOTE | 2024-04-02 22:45 | DS ---
Date of Discharge: 04/01/2024 Disposition: The patient was transferred via ground ambulance to [facility] in [facility]. Physical Examination: HEENT: Unremarkable. Lungs: Clear to auscultation. Heart: Sounds normal. Abdomen: Soft. Bowel sounds normal. No guarding, rigidity, tenderness, distention. Extremities: No leg edema. Laboratory Data: Upon admission, white count 12.2, hemoglobin 11.9, platelets 201. Lowest hemoglobi n during this hospital admission was 7.2, and at that time, 2 units of PRBC blood transfusion was ord ered and post transfusion, hemoglobin came up to 9.1. Yesterday, repeat white count 7.6, platelets 2 18. For chemistry upon admission, sodium 140, potassium 4.3, chloride 106, bicarb 30, BUN 50, creati nine 0.60, glucose 110, and lipase 40. Yesterday, sodium 142, potassium 4.3, chloride 113, bicarb 27 , BUN 41, creatinine 0.46, glucose 104. Liver function tests unremarkable. Lipase 33. Hospital Course: This is a 73-year-old pleasant male patient, who was admitted to the hospital after he came into emergency room with 2 episodes of hematemesis at home. Please see dictated H and P for more information. The patient came into emergency room with these complaints. After he was evaluat ed, he was admitted to the hospital. He was started on IV Protonix drip and IV fluid. The patient r emained on IV Protonix drip throughout this hospital stay. His initial hemoglobin was 11.9, but we m onitored his hemoglobin closely and once it dropped down to 7.2, we decided to give him 2 units of ID BC blood transfusion. EGD done yesterday by Dr. Gerardo showed no evidence of any stomach ulcer or an y sign of bleeding from his stomach, but the patient was noted to have severe duodenal stenosis and Cat Gerardo was not able to pass the scope through this stenotic area, but he did see some dark blood j ust proximal to this stenotic area, so he believes that this was reflux of blood from area of bleedin g distal to the stricture, which he was not able to visualize because he was not able to advance the scope through the stenotic area. With the patient's drop in hemoglobin, we decided to give him 2 uni ts of blood transfusion and it was recommended to the patient to go to [place] where he has been seei ng a baker paint and a surgeon to figure out definitive treatment plan for his duodenal strict ure, so I did contact the patient's baker paint, Dr. Bejarano, who was able to help us facilit ate the transfer to [facility] and I did communicate details with Hospitalist blu clements all these details were discussed with the patient and his who was in room with him today and t hey are agreeable to go to [place] as recommended for higher level of care. The patient has been eric ing ibuprofen on a frequent basis at home for his chronic arthritis problem and I have advised him du ring this hospitalization 2 different times and today was the third time communicated with him in pre sence of his that he should not take any aspirin, Aleve, Motrin, ibuprofen, naproxen type of med ications. The patient was transferred via ground ambulance in stable condition once all arrangements completed for the transfer. Final Diagnoses: 1.Acute upper GI bleeding. 2.Acute blood loss anemia. 3.Duodenal stricture. 4.Gastroesophageal reflux disease. 5.Hypothyroidism. 6.Hypertension. 7.Mixed hyperlipidemia. 8.Osteoarthritis, multiple sites. 9.Diverticulosis. Total time spent today was 60 minutes that includes visiting the patient this morning, communicating with the patient and the patient's , and communicating with Dr. Bejarano, and arranging transfer to go to [place] including communication with hospitalist at the receiving facility. EDY/MODL Voice ID: [id number] Report ID: [id number]
== END 2024-04-01 22:42 | disposition short-term general hospital (02) | DRG 378 ==
LOC: ER 11:35 → ERHOLD 16:59 → 4TH 19:31
PROVIDERS: ADMIT Internal Medicine; ATTEND Internal Medicine
PROC: 0DB98ZX Excision of Duodenum, Via Natural or Artificial Opening Endoscopic, Diagnostic (ICD-10-PCS; principal; 2024-03-31 11:30)
DX: K92.2 Gastrointestinal hemorrhage, unspecified (principal); D62 Acute posthemorrhagic anemia; K31.5 Obstruction of duodenum; I10 Essential (primary) hypertension; E78.2 Mixed hyperlipidemia; E03.9 Hypothyroidism, unspecified; K21.9 Gastro-esophageal reflux disease without esophagitis; N40.0 Benign prostatic hyperplasia without lower urinary tract symptoms; M19.09 Primary osteoarthritis, other specified site; K57.90 Diverticulosis of intestine, part unspecified, without perforation or abscess without bleeding; F17.220 Nicotine dependence, chewing tobacco, uncomplicated; Z88.5 Allergy status to narcotic agent; Z79.890 Hormone replacement therapy; Z79.899 Other long term (current) drug therapy
CPT/HCPCS: 36415; 74177; 80048; 80053; 80076; 83690; 85014; 85018; 85025; 85610; 85730; 86850; 86900; 86901; 86920; 88305; 88312; 96374; 96375; 99284; J2001; J2270; J2405; J2470; J2704; J7050; J7120; J7799; P9016; Q9967

== ENCOUNTER 2024-11-03 00:33 | Emergency (ER) | payer OTHER ==
[2024-11-03] MEDS ORDERED: methocarbamoL 750 MG TAB ONE (02:10)
[2024-11-03] MEDS ORDERED: HYDROCODONE/APAP 10/325 TAB ONE (02:11)
--- NOTE | 2024-11-03 02:57 | ER ---
Nurse's Notes [facility] Name: Nathan Hurley Age: 74 yrs Sex: Male : 1950 Arrival Date: 11/03/2024 Time: 00:33 Bed DX3 Private MD: Dale Pulliam Diagnosis: Pain in left knee;Left knee sprain acute Presentation: 11/03 00:48 Chief complaint: Patient states: PT'S DOG HYPEREXTENDED LEFT KNEE EARLIER br2 TODAY......WOKE UP WITH LEFT KNEE PAIN. Coronavirus screen: Client denies travel out of the [place] in the last 14 days. Ebola Screen: Patient denies exposure to infectious person. Initial Sepsis Screen: Does the patient meet any 2 criteria? No. Patient's initial sepsis screen is negative. Does the patient have a suspected source of infection? No. Patient's initial sepsis screen is negative. Risk Assessment: Do you want to hurt yourself or someone else? Patient reports no desire to harm self or others. Onset of symptoms was November 02, 2024. 00:48 Method Of Arrival: Other br2 00:48 Acuity: ANTONIO 4 br2 Triage Assessment: 00:52 General: Appears uncomfortable, Behavior is calm, cooperative. Pain: Complains of pain br2 in lateral aspect of left knee Pain currently is 7 out of 10 on a pain scale. Musculoskeletal: Capillary refill < 3 seconds, Range of motion: limited in left knee. Injury Description: DOG RAN INTO LEFT KNEE. Historical: - Allergies: 00:52 Demerol; br2 - Home Meds: 03:30 diclofenac Oral [Active]; aa10 - PMHx: 00:52 Hypertension; Arthritis; ABDOMINAL STRICTURE; br2 - Immunization history:: Adult Immunizations not up to date. - Infectious Disease History:: Denies. - Social history:: Smoking status: Patient denies any tobacco usage or history of. Patient/guardian denies using alcohol, street drugs. - Family history:: not pertinent. Screenin:28 [facility] ED Fall Risk Assessment (Adult) History of falling in the last 3 months, aa10 including since admission No falls in past 3 months (0 pts) Confusion or Disorientation No (0 pts) Intoxicated or Sedated No (0 pts) Impaired Gait No (0 pts) Mobility Assist Device Used No (0 pt) Altered Elimination No (0 pt) Score/Fall Risk Level 0 - 2 = Low Risk Oriented to surroundings, Maintained a safe environment, Educated pt \T\ family on fall prevention, incl call for assistance when getting out of bed, Assessed \T\ reinforced patient's understanding of fall precautions, Provided non-skid footwear. Abuse screen: Denies threats or abuse. Denies injuries from another. Nutritional screening: No deficits noted. Tuberculosis screening: No symptoms or risk factors identified. Vital Signs: 00:48 BP 148 / 87; Pulse 74; Resp 18; Temp 97.6(TE); Pulse Ox 97% on R/A; Weight 61.23 kg; br2 Height 5 ft. 5 in. ; Pain 7/10; 03:31 BP 140 / 82; Pulse 72; Resp 20; Temp 98; Pulse Ox 99% on R/A; aa10 00:48 Body Mass Index 22.46 (61.23 kg, 165.1 cm) br2 00:48 Pain Scale: Adult br2 Gisselle Coma Score: 21:16 Eye Response: spontaneous(4). Motor Response: obeys commands(6). Verbal Response: sp4 oriented(5). Total: 15. ED Course: 00:38 Patient arrived in ED. gm2 00:38 Dale Pulliam MD is Private Physician. gm2 00:39 Dannie Solitario MD is Attending Physician. sp4 00:52 Triage completed. br2 00:52 Arm band placed on. br2 01:49 Knee Left 3 View XRAY In Process Unspecified. EDMS 03:29 Patient has correct armband on for positive identification. Allergy band placed. Fall aa10 risk band placed. Bed in low position. Side rails up X 1. Provided Education on: about plan of care. 03:29 No provider procedures requiring assistance completed. Patient did not have IV access aa10 during this emergency room visit. Administered Medications: 02:24 Drug: HYDROcodone-acetaminophen PO 10 mg-325 mg 1 tabs PO once Route: PO; jb4 03:31 Follow up: Response: No adverse reaction; Marked relief of symptoms aa10 02:24 Drug: Methocarbamol PO 1500 mg PO once Route: PO; jb4 03:30 Follow up: Response: No adverse reaction; Marked relief of symptoms aa10 Medication: 03:30 VIS not applicable for this client. aa10 Outcome: 02:57 Discharge ordered by MD. mckinnon 03:29 Discharged to home ambulatory, with crutches, aa10 03:29 Condition: good 03:29 Discharge instructions given to patient, Instructed on discharge instructions, Demonstrated understanding of instructions, Prescriptions given X 1, 03:32 Patient left the ED. aa10 Signatures: Dispatcher [employer] EDMS Lamont Kwok RN RN jb4 Dannie Solitario MD MD sp4 Heather Melendez gm2 Susan Maradiaga RN RN br2 Marco A Resendez RN RN aa10
--- NOTE | 2024-11-03 02:57 | EDPHYS ---
Physician Documentation [facility] Name: Nathan Hurley Age: 74 yrs Sex: Male : 1950 Arrival Date: 11/03/2024 Time: 00:33 Bed DX3 Private MD: Dale Pulliam ED Physician Dannie Solitario HPI: 11/03 00:39 This 74 yrs old Male presents to ER via Unassigned with complaints of Knee sp4 Injury, Knee Pain. 21:16 74-year-old male presents with complaint of left knee sprain . patient has history of sp4 bilateral knee replacement.. Patient presents with moderate left knee pain associated with a sprain. Patient reports he would like to make sure his hardware is intact. Historical: - Allergies: 00:52 Demerol; br2 - Home Meds: 03:30 diclofenac Oral [Active]; aa10 - PMHx: 00:52 Hypertension; Arthritis; ABDOMINAL STRICTURE; br2 - Immunization history:: Adult Immunizations not up to date. - Infectious Disease History:: Denies. - Social history:: Smoking status: Patient denies any tobacco usage or history of. Patient/guardian denies using alcohol, street drugs. - Family history:: not pertinent. ROS: 21:16 Constitutional: Negative for fever, chills, and weight loss, MS/Extremity: Positive sp4 left knee sprain positive left knee pain 21:16 All other systems are negative, Exam: 21:16 Constitutional: This is a well developed, well nourished patient who is awake, alert, sp4 and in no acute distress. Head/Face: Normocephalic, atraumatic. Eyes: Pupils equal round and reactive to light, extra-ocular motions intact. Lids and lashes normal. Conjunctiva and sclera are not injected. Cornea within normal limits. Periorbital areas with no swelling, redness, or edema. ENT: Nares patent. No nasal discharge, no septal abnormalities noted. Tympanic membranes are normal and external auditory canals are clear. Oropharynx with no redness, swelling, or masses, exudates, or evidence of obstruction, uvula midline. Mucous membranes moist. Neck: Trachea midline, no thyromegaly or masses palpated, and no cervical lymphadenopathy. Supple, full range of motion without nuchal rigidity, or vertebral point tenderness. Chest/axilla: Normal chest wall appearance and motion. Nontender with no deformity. No lesions are appreciated. Cardiovascular: Regular rate and rhythm with a normal S1 and S2. No gallops, murmurs, or rubs. Normal PMI, no JVD. No pulse deficits. Respiratory: Lungs have equal breath sounds bilaterally, clear to auscultation and percussion. No rales, rhonchi or wheezes noted. No increased work of breathing, no retractions or nasal flaring. Abdomen/GI: Soft, with normal bowel sounds. No distension or tympany. No guarding or rebound. No evidence of tenderness throughout. Back: No spinal tenderness. No costovertebral tenderness. Skin: Warm, dry with normal turgor. Normal color with no rashes, no lesions, and no evidence of cellulitis. MS/ Extremity: Pulses equal, no cyanosis. Neurovascular intact. Full, normal range of motion. Left knee exam reveals normal stable left knee without deformity without swelling. No signs of effusion. Scarring from prior total knee replacement Neuro: Awake and alert, GCS 15, oriented to person, place, time, and situation. Cranial nerves II-XII grossly intact. Motor strength 5/5 in all extremities. Sensory grossly intact. Psych: Awake, alert, with orientation to person, place and time. Behavior, mood, and affect are within normal limits Vital Signs: 00:48 BP 148 / 87; Pulse 74; Resp 18; Temp 97.6(TE); Pulse Ox 97% on R/A; Weight 61.23 kg; br2 Height 5 ft. 5 in. ; Pain 7/10; 03:31 BP 140 / 82; Pulse 72; Resp 20; Temp 98; Pulse Ox 99% on R/A; aa10 00:48 Body Mass Index 22.46 (61.23 kg, 165.1 cm) br2 00:48 Pain Scale: Adult br2 Gisselle Coma Score: 21:16 Eye Response: spontaneous(4). Motor Response: obeys commands(6). Verbal Response: sp4 oriented(5). Total: 15. Procedures: 21:23 Splinting: Splint applied to left knee using Hinged knee brace to the left knee sp4 applied. applied by myself. Examined by me, post splint application: neurovascular intact, 2+ distal pulses palpable, brisk capillary refill noted, Patient tolerated well. MDM: 00:40 Medical Screening Exam initiated sp4 02:54 ED course: CLINICAL HISTORY: Knee sprain. COMPARISON: None. TECHNIQUE: XR KNEE 3 VIEWS sp4 LEFT 11/03/2024 1:30 AM CDT FINDINGS: There is no fracture. Total right knee arthroplasty is present. There is a long stent femoral component. There is mild soft tissue swelling surrounding the knee. IMPRESSION: No acute osseous findings.. 21:16 Differential diagnosis: dislocation, closed fracture, contusion, abrasion, tendonitis. sp4 Data reviewed: vital signs, nurses notes. Data reviewed: radiologic studies, plain films. Consideration of Admission/Observation Escalation of care including admission/observation considered. ED course: Positive for unremarkable left knee x-ray. Patient was given hinged knee immobilizer. Stable for discharge home with patient has his own crutches. Advised left knee immobilizer for the next 2 weeks . . 11/03 01:30 Order name: Knee Left 3 View XRAY sp4 Administered Medications: 02:24 Drug: HYDROcodone-acetaminophen PO 10 mg-325 mg 1 tabs PO once Route: PO; jb4 03:31 Follow up: Response: No adverse reaction; Marked relief of symptoms aa10 02:24 Drug: Methocarbamol PO 1500 mg PO once Route: PO; jb4 03:30 Follow up: Response: No adverse reaction; Marked relief of symptoms aa10 Disposition: 21:24 Chart complete. sp4 Disposition Summary: 11/03/24 02:57 Discharge Ordered Notes: Location: Home sp4 Problem: new sp4 Symptoms: have improved sp4 Condition: Stable sp4 Diagnosis - Pain in left knee sp4 - Left knee sprain acute sp4 Followup: sp4 - With: Private Physician - When: 7 - 10 days - Reason: Recheck today's complaints Discharge Instructions: - Discharge Summary Sheet sp4 - Acute Knee Pain, Adult sp4 Forms: - Patient Portal Instructions sp4 Prescriptions: - Tramadol 50 mg Oral tablet - take 1 tablet ORAL route every 8 hours as needed; 20 tablet; Refills: 0, sp4 Product Selection Permitted Signatures: Dispatcher [employer] Lamont Goetz RN RN jb4 Dannie Solitario MD MD sp4 Susan Maradiaga RN RN br2 Mal, Ayoku, RN RN aa10
[2024-11-03 03:38] VITALS: BP 140/82; TEMP 98; O2SAT 99
--- NOTE | 2024-11-03 05:55 | RAD REPORT ---
CLINICAL HISTORY: Knee sprain. COMPARISON: None. TECHNIQUE: XR KNEE 3 VIEWS LEFT 11/03/2024 1:30 AM CDT FINDINGS: There is no fracture. Total right knee arthroplasty is present. There is a long stent femoral compone nt. There is mild soft tissue swelling surrounding the knee. IMPRESSION: No acute osseous findings. Electronically signed by: Dwain Sahu MD 11/03/2024 02:47 AM CDT RP Due to temporary technical issues with the PACS/[employer] reporting system, reports are being jean-paul d by the in-house radiologist without review as a courtesy to ensure prompt reporting the interpreting radiologist is fully responsible for the content of the report. Transcribed Date/Time: 11/03/2024 5:55 AM
== END 2024-11-03 03:32 | disposition home or self-care (01) ==
LOC: ER 00:33
DX: S83.92XA Sprain of unspecified site of left knee, initial encounter (principal); Z96.653 Presence of artificial knee joint, bilateral